=== PATIENT | male | born 1990 | race Caucasian/White ===

== ENCOUNTER 2017-12-25 18:42 | Emergency (ER) | payer SELFPAY ==
--- OUTSIDE RECORDS SUMMARY | 2017-12-25 18:44 | XMS REPORT | Clinical Summary ---
:1990 Author Organization [facility] Address [address] [place] [address] Care Team Providers Name Role Phone Asked, No Pcp Primary Care Provider Unavailable Allergies Active Allergy Reactions Severity Noted Date Comments Albuterol Hives 12/08/2017 Penicillins 12/08/2017 Tomato Rash Low 12/08/2017 Pt reports allergic to fresh tomato, tomato slices. Reports he can tolerate ketchup, or tomato sauce on pasta. Medications Medication Sig Dispensed Refills Start Date End Date Status FLUoxetine (PROzac) Take 1 capsule 30 capsule 0 12/13/2017 01/12/2018 Active 10 MG (10 mg total) by capsuleIndications: mouth every Major Depressive morning for 30 Disorder days. nicotine (NICODERM Place 1 patch on 30 patch 0 12/13/2017 01/12/2018 Active CQ) 14 mg/24 the skin daily hrIndications: for 30 days. Smoking Cessation Active Problems Problem Noted Date Major depressive disorder, recurrent severe without psychotic features 2017 Stimulant use disorder, severe 12/08/2017 Suicide attempt by adequate means 12/08/2017 Alcohol use disorder, severe 12/08/2017 Encounters Date Type Specialty Care Team Description 12/08/2017 - Hospital Encounter Psychiatry Shamika Patterson MD 12/12/2017 Sarabjit Feng MD 12/05/2017 Intake Access N/A after 12/24/2016 Social History Tobacco Use Types Packs/Day Years Used Date Never Assessed Sex Assigned at Date Recorded Not on file Job Start Date Occupation Industry Not on file Not on file Not on file Travel History Travel Start Travel End No recent travel history available. Last Filed Vital Signs Vital Sign Reading Time Taken Blood Pressure 124/58 12/12/2017 6:25 AM [employer] Pulse 63 12/12/2017 6:25 AM [employer] Temperature 36.1 C (97 F) 12/12/2017 6:25 AM [employer] Respiratory Rate 18 12/12/2017 6:25 AM [employer] Oxygen Saturation 98% 12/12/2017 6:25 AM [employer] Inhaled Oxygen Concentration - - Weight 88.6 kg (195 lb 4.8 oz) 12/12/2017 6:25 AM [employer] Height 177.8 cm (5' 10") 12/08/2017 3:29 PM CDT Body Mass Index 28.02 12/12/2017 6:25 AM [employer] Plan of Treatment Not on file Procedures Procedure Name Priority Date/Time Associated Comments Diagnosis ESTIMATED GFR Routine 12/10/2017 5:45 Results for this AM [employer] procedure are in the results section. HC COMPLETE BLD COUNT Routine 12/10/2017 5:45 Results for this W/AUTO DIFF AM [employer] procedure are in the results section. COMPREHENSIVE Routine 12/10/2017 5:45 Results for this METABOLIC PANEL AM [employer] procedure are in the results section. SYPHILIS TREPONEMAL Routine 12/10/2017 5:45 Results for this IGG AM [employer] procedure are in the results section. HIV AG/AB COMBINATION Routine 12/10/2017 5:45 Results for this AM [employer] procedure are in the results section. LIPID PANEL Routine 12/10/2017 5:45 Results for this AM [employer] procedure are in the results section. HEMOGLOBIN A1C Routine 12/10/2017 5:45 Results for this AM [employer] procedure are in the results section. after 12/24/2016 Results Syphilis treponemal IgG (12/10/2017 5:45 AM [employer]) Syphilis treponemal IgG Non-reactiveComment: Non-reactive [facility] DEPARTMENT OF Non-reactive: No PATHOLOGY AND GENOMIC serological evidence of MEDICINE Syphilis infection Specimen Serum Performing Organization Address City/State/Zipcode Phone Number [facility] DEPARTMENT OF PATHOLOGY AND [address] [place] [address] GENOMIC MEDICINE Estimated GFR (12/10/2017 5:45 AM [employer]) Estimated GFR >=90 mL/min/1.73 m2 [facility] DEPARTMENT OF Comment: PATHOLOGY AND GENOMIC CatergoryUnitsInterpretation MEDICINE G1 >=90 Normal or high G2 60-89Mildly decreased [id number] to moderately decreased [id number] to severely decreased G4 15-29Severely decreased G5 <15Kidney failure The eGFR was calculated using the Chronic Kidney Disease Epidemiology Collaboration (CKD-EPI) equation. Interpretation is based on recommendations of the National Kidney Foundation-Kidney Disease Outcomes Quality Initiative (NKF-KDOQI) published in 2014. Specimen Plasma specimen Performing Organization Address City/[facility]/Zipcode Phone Number [facility] DEPARTMENT OF PATHOLOGY AND [address] [place] [phone] [place] [address] HIV Ag/Ab combination (12/10/2017 5:45 AM [employer]) HIV Ag/Ab combination Non-reactive Non-reactive [facility] DEPARTMENT OF PATHOLOGY AND GENOMIC MEDICINE Specimen Blood Performing Organization Address City/[facility] Phone Number [facility] DEPARTMENT OF PATHOLOGY AND [address] [place] [phone] [place] [address] CBC with platelet and differential (12/10/2017 5:45 AM [employer]) WBC 7.24 4.50 - 11.00 k/uL [facility] DEPARTMENT OF PATHOLOGY AND GENOMIC MEDICINE RBC 5.35 4.40 - 6.00 m/uL [facility] DEPARTMENT OF PATHOLOGY AND GENOMIC MEDICINE HGB 15.9 14.0 - 18.0 g/dL [facility] DEPARTMENT OF PATHOLOGY AND GENOMIC MEDICINE HCT 46.7 41.0 - 51.0 % [facility] DEPARTMENT OF PATHOLOGY AND GENOMIC MEDICINE MCV 87.3 82.0 - 100.0 fL [facility] DEPARTMENT OF PATHOLOGY AND GENOMIC MEDICINE MCH 29.7 27.0 - 34.0 pg [facility] DEPARTMENT OF PATHOLOGY AND GENOMIC MEDICINE MCHC 34.0 31.0 - 37.0 g/dL [facility] DEPARTMENT OF PATHOLOGY AND GENOMIC MEDICINE RDW - SD 37.2 37.0 - 55.0 fL [facility] DEPARTMENT OF PATHOLOGY AND GENOMIC MEDICINE MPV 9.9 8.8 - 13.2 fL [facility] DEPARTMENT OF PATHOLOGY AND GENOMIC MEDICINE Platelet count 257 150 - 400 k/uL [facility] DEPARTMENT OF PATHOLOGY AND GENOMIC MEDICINE Nucleated RBC 0.00 /100 WBC [facility] DEPARTMENT OF PATHOLOGY AND GENOMIC MEDICINE Neutrophils 50.0 39.0 - 69.0 % [facility] DEPARTMENT OF PATHOLOGY AND GENOMIC MEDICINE Lymphocytes 31.1 25.0 - 45.0 % [facility] DEPARTMENT OF PATHOLOGY AND GENOMIC MEDICINE Monocytes 12.6 (H) 0.0 - 10.0 % [facility] DEPARTMENT OF PATHOLOGY AND GENOMIC MEDICINE Eosinophils 4.6 0.0 - 5.0 % [facility] DEPARTMENT OF PATHOLOGY AND GENOMIC MEDICINE Basophils 1.1 (H) 0.0 - 1.0 % [facility] DEPARTMENT OF PATHOLOGY AND GENOMIC MEDICINE Immature granulocytes 0.6Comment: 0.0 - 1.0 % [facility] DEPARTMENT OF "Immature PATHOLOGY AND GENOMIC granulocytes" MEDICINE (promyelocytes, myelocytes, metamyelocytes) Specimen Blood Performing Organization Address City/[facility] Phone Number [facility] DEPARTMENT OF PATHOLOGY AND [address] [place] [phone] [facility] Hemoglobin A1c (12/10/2017 5:45 AM [employer]) Hemoglobin A1C 5.3 4.0 - 5.6 % [facility] DEPARTMENT OF PATHOLOGY Comment: AND GENOMIC MEDICINE HbA1c cutoffs for diagnosing diabetes: 4.0% - 5.6%=normal 5.7% - 6.4%=increased risk for diabetes (prediabetes) >=6.5%=diabetes Goals for glycemic control (ADA 2016) < 7.0%Target for non adults with diabetes. More or less stringent targets may be appropriate for individual patients. <7.5% Target for Children and adolescents with type 1 diabetes. Specimen Blood Performing Organization Address City/[facility] Phone Number [facility] DEPARTMENT OF PATHOLOGY AND [address] [place] [phone] [facility] Lipid panel (12/10/2017 5:45 AM [employer]) Cholesterol 223 (H) <200 mg/dL [facility] DEPARTMENT OF PATHOLOGY AND GENOMIC MEDICINE Triglycerides 503 (H) <150 mg/dL [facility] DEPARTMENT OF PATHOLOGY AND GENOMIC MEDICINE HDL cholesterol 36 (L) >40 mg/dL [facility] DEPARTMENT OF PATHOLOGY AND GENOMIC MEDICINE LDL cholesterol 123 (H)Comment: Result <100 mg/dL [facility] DEPARTMENT OF obtained by direct LDL PATHOLOGY AND GENOMIC measurement MEDICINE Lipid panel interpretation [facility] Comment: PATHOLOGY AND GENOMIC Total Cholesterol (mg/dL) MEDICINE <200 Desirable 557-359Asjgjxyykr-mcfh >=240High Triglycerides (mg/dL) <150 Normal [id number]-fcjb 200-499High >=500Very high HDL Cholesterol (mg/dL) <40Low (male) <40Low (female) LDL Cholesterol (mg/dL) <100 Optimal 100-129Near or above optimal 011-407Vdkpalboeg-dgcf 160-189High >=190Very high Risk Catergories that modify LDL goals. Risk CatergoriesLDL goal (mg/dL) CHD and CHD risk equivalent<100 (10-year risk >20%) Multiple (2+) risk factors <130 (10-year risk=<20%) 0-1 risk factors <160 (<10-year risk) Defining levels of lipids in metabolic syndrome Triglycerides>=150 mg/dL HDL Cholesterol Men<40 mg/dL Women<40 mg/dL Non-HDL cholesterol is a second target for therapy in persons with high triglycerides (>=200 mg/dL) Specimen Plasma specimen Performing Organization Address City/State/Zipcode Phone Number [facility] DEPARTMENT OF PATHOLOGY [facility] [place] [address] [email or web address] MEDICINE Comprehensive metabolic panel (12/10/2017 5:45 AM [employer]) Sodium 138 135 - 148 mEq/L [facility] DEPARTMENT OF PATHOLOGY AND GENOMIC MEDICINE Potassium 3.9 3.5 - 5.0 mEq/L [facility] DEPARTMENT OF PATHOLOGY AND GENOMIC MEDICINE Chloride 98 98 - 112 mEq/L [facility] DEPARTMENT OF PATHOLOGY AND GENOMIC MEDICINE CO2 26 24 - 31 mEq/L [facility] DEPARTMENT OF PATHOLOGY AND GENOMIC MEDICINE Anion gap 14@ANIO 7 - 15 mEq/L [facility] DEPARTMENT OF PATHOLOGY AND GENOMIC MEDICINE BUN 15 6 - 20 mg/dL [facility] DEPARTMENT OF PATHOLOGY AND GENOMIC MEDICINE Creatinine 1.04 0.70 - 1.20 mg/dL [facility] DEPARTMENT OF PATHOLOGY AND GENOMIC MEDICINE Glucose 83 65 - 99 mg/dL [facility] DEPARTMENT OF PATHOLOGY AND GENOMIC MEDICINE Calcium 9.7 8.3 - 10.2 mg/dL [facility] DEPARTMENT OF PATHOLOGY AND GENOMIC MEDICINE Protein 7.3 6.3 - 8.3 g/dL [facility] DEPARTMENT OF Comment: PATHOLOGY AND GENOMIC [place] 4.6-7.0 g/dL MEDICINE 1 week 4.4-7.6 g/dL 7 months-1year5.1-7.3 g/dL 1-2 years5.6-7.5 g/dL >3 years6.0-8.0 g/dL 18-150 6.3-8.3 g/dL Albumin 3.8 3.5 - 5.0 g/dL [facility] DEPARTMENT OF PATHOLOGY AND GENOMIC MEDICINE A/G ratio 1.1 0.7 - 3.8 [facility] DEPARTMENT OF PATHOLOGY AND GENOMIC MEDICINE Alkaline phosphatase 70 40 - 129 U/L [facility] DEPARTMENT OF PATHOLOGY AND GENOMIC MEDICINE AST 45 10 - 50 U/L [facility] DEPARTMENT OF PATHOLOGY AND GENOMIC MEDICINE ALT 69 (H) 5 - 50 U/L [facility] DEPARTMENT OF PATHOLOGY AND GENOMIC MEDICINE Total bilirubin <0.2 0.0 - 1.2 mg/dL [facility] DEPARTMENT OF PATHOLOGY AND GENOMIC MEDICINE Specimen Plasma specimen Performing Organization Address City/State/Zipcode Phone Number [facility] DEPARTMENT OF PATHOLOGY AND [address] [place] [address] [email or web address] [facility] after 12/24/2016 Advance Directives Patient has advance care planning documents on file. For more information, please contact:Adolph Rodriguez[address] [place] [address]
[2017-12-25] MEDS ORDERED: HYDROCODONE/APAP 5/325 MG TAB ONE (19:35)
[2017-12-25] MEDS ORDERED: CLINDAMYCIN HCL 150 MG CAP ONE (19:36)
[2017-12-25] MEDS ORDERED: KETOROLAC 30 MG/ML INJ ONE (19:36)
--- NOTE | 2017-12-25 20:28 | EDPHYS ---
Physician Documentation [facility] Name: Brennen Dewey Age: 27 yrs Sex: Male : 1990 Arrival Date: 12/25/2017 Time: 18:44 Bed 6 Private MD: None, None ED Physician Gasper Carr HPI: 12/26 05:22 This 27 yrs old Male presents to ER via Ambulatory with complaints of Dog tw4 Bite. 05:22 The patient was bitten on the dorsal aspect of proximal phalanx of left middle finger tw4 and palmar aspect of proximal phalanx of left ring finger. Onset: The symptoms/episode began/occurred today. Animal information: Patient/Caregiver unable to provide information related to the animal. Secondary to the bite the patient reports a puncture wound, that is superficial. Associated signs and symptoms: Pertinent positives:. Severity of symptoms: At their worst the symptoms were moderate, in the emergency department the symptoms are unchanged. The patient has not experienced similar symptoms in the past. Historical: - Allergies: 12/25 18:55 Albuterol; jl7 18:55 PENICILLINS; jl7 - Home Meds: 18:55 Prozac Oral [Active]; jl7 - PMHx: 18:55 Depression; jl7 - PSHx: 18:55 None; jl7 - Immunization history:: Adult Immunizations up to date. - Social history:: Smoking status: Patient uses tobacco products, smokes one pack cigarettes per day. - Ebola Screening: : No symptoms or risks identified at this time. ROS: 12/26 05:22 Constitutional: Negative for fever, chills, and weight loss. tw4 Eyes: Negative for injury, pain, redness, and discharge, Cardiovascular: Negative for chest pain, palpitations, and edema, Respiratory: Negative for shortness of breath, cough, wheezing, and pleuritic chest pain, Abdomen/GI: Negative for abdominal pain, nausea, vomiting, diarrhea, and constipation, Back: Negative for injury and pain. MS/extremity: Positive for MS/extremity: Positive for pain, tenderness. Exam: 05:22 Constitutional: This is a well developed, well nourished patient who is awake, alert, tw4 and in no acute distress. Head/Face: Normocephalic, atraumatic. Chest/axilla: Normal chest wall appearance and motion. Nontender with no deformity. No lesions are appreciated. Cardiovascular: Regular rate and rhythm with a normal S1 and S2. No gallops, murmurs, or rubs. Normal PMI, no JVD. No pulse deficits. Respiratory: Lungs have equal breath sounds bilaterally, clear to auscultation and percussion. No rales, rhonchi or wheezes noted. No increased work of breathing, no retractions or nasal flaring. Abdomen/GI: Soft, non-tender, with normal bowel sounds. No distension or tympany. No guarding or rebound. No evidence of tenderness throughout. 05:22 Musculoskeletal/extremity: Extremities: noted in the dorsal aspect of proximal phalanx of left middle finger: ROM: limited active range of motion, limited passive range of motion, the dorsal aspect of proximal phalanx of left middle finger Vital Signs: 12/25 18:55 BP 111 / 79; Pulse 108; Resp 18 S; Temp 98(O); Pulse Ox 97% on R/A; Weight 88.45 kg jl7 (R); Height 5 ft. 10 in. (177.80 cm) (R); Pain 8/10; 20:40 BP 116 / 74; Pulse 99; Resp 18 S; Pulse Ox 98% on R/A; cc3 18:55 Body Mass Index 27.98 (88.45 kg, 177.80 cm) jl7 MDM: 19:05 Patient medically screened. tw4 12/26 05:22 Differential diagnosis: superficial laceration, tendon injury. Data reviewed: vital tw4 signs, nurses notes. Data interpreted: Pulse oximetry: Interpretation: normal. Counseling: I had a detailed discussion with the patient and/or guardian regarding: the historical points, exam findings, and any diagnostic results supporting the discharge/admit diagnosis. Medication response: Toradol markedly relieved the patient's pain. Special discussion: I discussed with the patient/guardian in detail that at this point there is no indication for admission to the hospital. It is understood, however, that if the symptoms persist or worsen the patient needs to return immediately for re-evaluation. Administered Medications: 12/25 19:30 Drug: Otis 5 mg-325 mg 1 tabs Route: PO; rv 20:30 Follow up: Response: No adverse reaction; Pain is decreased cc3 19:30 Drug: Cleocin 300 mg Route: PO; rv 20:30 Follow up: Response: No adverse reaction cc3 19:50 Not Given (Patient Refused): TORadol 60 mg IM once rv Disposition: 12/25/17 20:27 Discharged to Home. Impression: Bitten by dog, Puncture wound without foreign body of left hand. - Condition is Stable. - Discharge Instructions: Animal Bite. - Prescriptions for Cleocin 300 mg Oral Capsule - take 1 capsule by ORAL route every 6 hours for 10 days; 40 capsule. Ibuprofen 800 mg Oral Tablet - take 1 tablet by ORAL route every 12 hours As needed take with food; 20 tablet. Tylenol- Codeine #3 300-30 mg Oral Tablet - take 2 tablet by ORAL route every 6 hours As needed; 6 tablet. - Medication Reconciliation Form, Thank You Letter, Antibiotic Education, Prescription Opioid Use form. - Follow up: Private Physician; When: Upon discharge from the Emergency Department; Reason: Further diagnostic work-up, Recheck today's complaints, Continuance of care. - Problem is new. - Symptoms have improved. Signatures: Mariama Arce RN RN jl7 Gasper Carr MD MD tw4 Rudi Copeland RN RN rv Nahed Medrano cc3 Corrections: (The following items were deleted from the chart) 21:00 20:27 12/25/2017 20:27 Discharged to Home. Impression: Bitten by dog; Puncture wound cc3 without foreign body of left hand. Condition is Stable. Forms are Medication Reconciliation Form, Thank You Letter, Antibiotic Education, Prescription Opioid Use. Follow up: Private Physician; When: Upon discharge from the Emergency Department; Reason: Further diagnostic work-up, Recheck today's complaints, Continuance of care. Problem is new. Symptoms have improved. tw4
--- NOTE | 2017-12-25 20:28 | ER ---
Nurse's Notes [facility] Name: Brennen Dewey Age: 27 yrs Sex: Male : 1990 Arrival Date: 12/25/2017 Time: 18:44 Bed 6 Private MD: None, None Diagnosis: Bitten by dog;Puncture wound without foreign body of left hand Presentation: 12/25 18:52 Presenting complaint: Patient states: Tried to break up some stray dogs fighting and jl7 one bit me., Puncture soliz noted to left ring finger, reports unable to move index and ring fingers. Transition of care: patient was not received from another setting of care. Onset of symptoms was December 25, 2017 at 18:00. Risk Assessment: Do you want to hurt yourself or someone else? Patient reports no desire to harm self or others. Initial Sepsis Screen: Does the patient meet any 2 criteria? No. Patient's initial sepsis screen is negative. Does the patient have a suspected source of infection? No. Patient's initial sepsis screen is negative. Care prior to arrival: None. 18:52 Method Of Arrival: Ambulatory [facility] 18:52 Acuity: SELENA 3 jl7 19:07 Note [employer] dispatcher Raoul contacted to report dog bite. ak1 Triage Assessment: 18:55 Bite description: bite sustained to dorsal aspect of proximal phalanx of left ring jl7 finger is superficial, by a dog, animal information: vaccination(s) is unknown. General: Appears in no apparent distress. uncomfortable, Behavior is calm, cooperative, appropriate for age. Pain: Complains of pain in dorsal aspect of proximal phalanx of left index finger and dorsal aspect of proximal phalanx of left middle finger Pain currently is 8 out of 10 on a pain scale. Historical: - Allergies: 18:55 Albuterol; jl7 18:55 PENICILLINS; jl7 - Home Meds: 18:55 Prozac Oral [Active]; jl7 - PMHx: 18:55 Depression; jl7 - PSHx: 18:55 None; jl7 - Immunization history:: Adult Immunizations up to date. - Social history:: Smoking status: Patient uses tobacco products, smokes one pack cigarettes per day. - Ebola Screening: : No symptoms or risks identified at this time. Screenin:15 Abuse screen: Denies threats or abuse. Denies injuries from another. Nutritional cc3 screening: No deficits noted. Tuberculosis screening: No symptoms or risk factors identified. Fall Risk Ambulatory Aid- None/Bed Rest/Nurse Assist (0 pts). Gait- Normal/Bed Rest/Wheelchair (0 pts) Mental Status- Oriented to own ability (0 pts). Assessment: 19:15 Derm: Skin is intact, Skin is pink, warm \T\ dry. Wound noted dorsal aspect of proximal cc3 phalanx of left middle finger and dorsal aspect of proximal phalanx of left ring finger. 20:30 Reassessment: Patient appears in no apparent distress at this time. Patient and/or cc3 family updated on plan of care and expected duration. Pain level reassessed. Patient is alert, oriented x 3, equal unlabored respirations, skin warm/dry/pink. Wound cleaning done. 21:00 Reassessment: Patient appears in no apparent distress at this time. Patient and/or cc3 family updated on plan of care and expected duration. Pain level reassessed. Patient is alert, oriented x 3, equal unlabored respirations, skin warm/dry/pink. Dr. Carr discharged the patient home with prescription given. No IV cannula in situ. Patient left ER vitally stable and ambulatory with his mother. Vital Signs: 18:55 BP 111 / 79; Pulse 108; Resp 18 S; Temp 98(O); Pulse Ox 97% on R/A; Weight 88.45 kg jl7 (R); Height 5 ft. 10 in. (177.80 cm) (R); Pain 8/10; 20:40 BP 116 / 74; Pulse 99; Resp 18 S; Pulse Ox 98% on R/A; cc3 18:55 Body Mass Index 27.98 (88.45 kg, 177.80 cm) jl7 ED Course: 18:44 Patient arrived in ED. sb2 18:44 None, None is Private Physician. sb2 18:54 Triage completed. jl7 18:55 Arm band placed on right wrist. jl7 19:05 Gasper Carr MD is Attending Physician. tw4 19:09 Nahed Medrano is Primary Nurse. cc3 19:15 Patient has correct armband on for positive identification. Bed in low position. Call cc3 light in reach. Pulse ox on. NIBP on. 21:00 No provider procedures requiring assistance completed. Patient did not have IV access cc3 during this emergency room visit. Administered Medications: 19:30 Drug: Marquand 5 mg-325 mg 1 tabs Route: PO; rv 20:30 Follow up: Response: No adverse reaction; Pain is decreased cc3 19:30 Drug: Cleocin 300 mg Route: PO; rv 20:30 Follow up: Response: No adverse reaction cc3 19:50 Not Given (Patient Refused): TORadol 60 mg IM once rv Outcome: 20:27 Discharge ordered by . gabriella 21:00 Patient left the ED. cc3 21:00 Discharged to home ambulatory, with family. cc3 21:00 Condition: stable 21:00 Discharge instructions given to patient, family, Instructed on discharge instructions, follow up and referral plans. medication usage, Demonstrated understanding of instructions, follow-up care, medications, wound care, Prescriptions given X 3. Signatures: Heather Butler, RN RN ak1 Mariama Arce RN RN jl7 Gasper Carr MD MD 4 Mandie Thompson 2 Rudi Copeland, RN RN rv Nahed Medrano cc3
[2017-12-25 22:28] VITALS: BP 111/79; TEMP 98; O2SAT 97
== END 2017-12-25 21:00 | disposition home or self-care (01) ==
LOC: ER 18:42
DX: S61.432A Puncture wound without foreign body of left hand, initial encounter (principal); W54.0XXA Bitten by dog, initial encounter; Y93.9 Activity, unspecified; Y92.9 Unspecified place or not applicable; Z88.0 Allergy status to penicillin; Z88.8 Allergy status to other drugs, medicaments and biological substances; F32.9 Major depressive disorder, single episode, unspecified; F17.210 Nicotine dependence, cigarettes, uncomplicated
CPT/HCPCS: 99283

== ENCOUNTER 2018-01-22 21:32 | Emergency (ER) | payer SELFPAY ==
--- OUTSIDE RECORDS SUMMARY | 2018-01-22 21:34 | XMS REPORT | Clinical Summary ---
:1990 Author Organization [facility] Address [address] [place] [address] Care Team Providers Name Role Phone Asked, [...] 1 capsule 30 capsule 0 12/13/2017 01/12/2018 10 MG (10 mg total) by capsuleIndications: mouth every Major Depressive morning for 30 Disorder days. nicotine (NICODERM Place 1 patch on 30 patch 0 12/13/2017 01/12/2018 CQ) 14 mg/24 the skin daily hrIndications: [...] Feng MD 12/05/2017 Intake Access N/A after 01/21/2017 Social History Tobacco Use Types Packs/Day Years Used Date Never Assessed Sex Assigned at Date Recorded Not on file Job Start Date Occupation Industry Not on file Not on file Not on file Travel History Travel Start Travel End No recent travel history available. Last Filed Vital Signs Vital Sign Reading Time Taken Blood Pressure 124/58 12/12/2017 6:25 AM [facility] Pulse 63 12/12/2017 6:25 AM [facility] Temperature 36.1 C (97 F) 12/12/2017 6:25 AM [facility] Respiratory Rate 18 12/12/2017 6:25 AM [facility] Oxygen Saturation 98% 12/12/2017 6:25 AM [facility] Inhaled Oxygen Concentration - - Weight 88.6 kg (195 lb 4.8 oz) 12/12/2017 6:25 AM [facility] Height 177.8 cm (5' 10") 12/08/2017 3:29 PM CDT Body Mass Index 28.02 12/12/2017 6:25 AM [facility] Plan of Treatment Not on file Procedures Procedure Name Priority Date/Time Associated Comments Diagnosis ESTIMATED GFR Routine 12/10/2017 5:45 Results for this AM [facility] procedure are in the results section. HC COMPLETE BLD COUNT Routine 12/10/2017 5:45 Results for this W/AUTO DIFF [facility] procedure are in the results section. COMPREHENSIVE Routine 12/10/2017 5:45 Results for this METABOLIC PANEL [facility] procedure are in the results section. SYPHILIS TREPONEMAL Routine 12/10/2017 5:45 Results for this IGG [facility] procedure are in the results section. HIV AG/AB COMBINATION Routine 12/10/2017 5:45 Results for this AM [facility] procedure are in the results section. LIPID PANEL Routine 12/10/2017 5:45 Results for this AM [facility] procedure are in the results section. HEMOGLOBIN A1C Routine 12/10/2017 5:45 Results for this AM [facility] procedure are in the results section. after 01/21/2017 Results Syphilis treponemal IgG (12/10/2017 5:45 AM [facility]) Syphilis treponemal IgG Non-reactiveComment: Non-reactive [facility] DEPARTMENT OF Non-reactive: No PATHOLOGY AND GENOMIC serological evidence of MEDICINE Syphilis infection Specimen Serum Performing Organization Address City/State/Zipcode Phone Number [facility] DEPARTMENT OF PATHOLOGY AND [address] [place] [address] GENOMIC MEDICINE Estimated GFR (12/10/2017 5:45 AM [facility]) Estimated GFR >=90 mL/min/1.73 m2 [facility] DEPARTMENT OF Comment: PATHOLOGY AND GENOMIC CatergoryUnitsInterpretation MEDICINE G1 >=90 Normal or high G2 60-89Mildly decreased [id number] to moderately decreased L8f51-89Zbcxyuqvqh to severely decreased G4 15-29Severely decreased G5 <15Kidney failure The eGFR was calculated using the Chronic Kidney Disease Epidemiology Collaboration (CKD-EPI) equation. Interpretation is based on recommendations of the National Kidney Foundation-Kidney Disease Outcomes Quality Initiative (NKF-KDOQI) published in 2014. Specimen Plasma specimen Performing Organization Address City/[facility]/Zipcode Phone Number [facility] DEPARTMENT OF PATHOLOGY AND [address] [place] [phone] [place] [address] HIV Ag/Ab combination (12/10/2017 5:45 AM [facility]) HIV Ag/Ab combination Non-reactive Non-reactive [facility] DEPARTMENT OF PATHOLOGY AND GENOMIC MEDICINE Specimen Blood Performing Organization Address City/[facility] [email or web address] Phone Number [facility] DEPARTMENT OF PATHOLOGY AND [address] [place] [phone] [place] [address] CBC with platelet and differential (12/10/2017 5:45 AM [facility]) WBC 7.24 4.50 - 11.00 k/uL [facility] DEPARTMENT OF PATHOLOGY AND GENOMIC MEDICINE RBC 5.35 4.40 - 6.00 m/uL [facility] DEPARTMENT OF PATHOLOGY AND GENOMIC MEDICINE HGB 15.9 14.0 - 18.0 g/dL [facility] DEPARTMENT OF PATHOLOGY AND GENOMIC MEDICINE HCT 46.7 41.0 - 51.0 % [facility] DEPARTMENT OF PATHOLOGY AND GENOMIC MEDICINE MCV 87.3 82.0 - 100.0 fL [facility] DEPARTMENT OF PATHOLOGY AND GENOMIC MEDICINE MCH 29.7 27.0 - 34.0 pg [facility] DEPARTMENT OF PATHOLOGY AND GENOMIC MEDICINE MCHC 34.0 31.0 - 37.0 g/dL [facility] DEPARTMENT OF PATHOLOGY AND GENOMIC MEDICINE RDW - SD 37.2 37.0 - 55.0 fL [facility] DEPARTMENT OF PATHOLOGY AND GENOMIC MEDICINE MPV 9.9 8.8 - 13.2 fL [facility] DEPARTMENT OF PATHOLOGY AND GENOMIC MEDICINE Platelet count 257 150 - 400 k/uL [facility] DEPARTMENT OF PATHOLOGY AND GENOMIC MEDICINE Nucleated RBC 0.00 /100 WBC [facility] DEPARTMENT OF PATHOLOGY AND GENOMIC MEDICINE Neutrophils 50.0 39.0 - 69.0 % [facility] DEPARTMENT OF PATHOLOGY AND GENOMIC MEDICINE Lymphocytes 31.1 25.0 - 45.0 % [facility] DEPARTMENT OF PATHOLOGY AND GENOMIC MEDICINE Monocytes 12.6 (H) 0.0 - 10.0 % [facility] DEPARTMENT OF PATHOLOGY AND GENOMIC MEDICINE Eosinophils 4.6 0.0 - 5.0 % [facility] DEPARTMENT OF PATHOLOGY AND GENOMIC MEDICINE Basophils 1.1 (H) 0.0 - 1.0 % [facility] DEPARTMENT OF PATHOLOGY AND GENOMIC MEDICINE Immature granulocytes 0.6Comment: 0.0 - 1.0 % [facility] DEPARTMENT OF "Immature PATHOLOGY AND GENOMIC granulocytes" MEDICINE (promyelocytes, myelocytes, metamyelocytes) Specimen Blood Performing Organization Address City/[facility] [email or web address] Phone Number [facility] DEPARTMENT OF PATHOLOGY AND [address] [place] [phone] [place] [address] Hemoglobin A1c (12/10/2017 5:45 AM [facility]) Hemoglobin A1C 5.3 4.0 - 5.6 % [facility] DEPARTMENT OF PATHOLOGY Comment: AND GENOMIC MEDICINE HbA1c cutoffs for diagnosing diabetes: 4.0% - 5.6%=normal 5.7% - 6.4%=increased risk for diabetes (prediabetes) >=6.5%=diabetes Goals for glycemic control (ADA 2016) < 7.0%Target for non adults with diabetes. More or less stringent targets may be appropriate for individual patients. <7.5% Target for Children and adolescents with type 1 diabetes. Specimen Blood Performing Organization Address City/[facility] [email or web address] Phone Number [facility] DEPARTMENT OF PATHOLOGY AND [address] [place] [phone] [facility] Lipid panel (12/10/2017 5:45 AM [facility]) Cholesterol 223 (H) <200 mg/dL [facility] DEPARTMENT OF PATHOLOGY AND GENOMIC MEDICINE Triglycerides 503 (H) <150 mg/dL [facility] DEPARTMENT OF PATHOLOGY AND GENOMIC MEDICINE HDL cholesterol 36 (L) >40 mg/dL [facility] DEPARTMENT OF PATHOLOGY AND GENOMIC MEDICINE LDL cholesterol 123 (H)Comment: Result <100 mg/dL [facility] DEPARTMENT OF obtained by direct LDL PATHOLOGY AND GENOMIC measurement MEDICINE Lipid panel [facility] Comment: PATHOLOGY AND GENOMIC Total Cholesterol (mg/dL) MEDICINE <200 Desirable 298-637Gkwzyhzkvi-fszw >=240High Triglycerides (mg/dL) <150 Normal 141-303Fxqxvrgtzs-rnhq 200-499High >=500Very high HDL Cholesterol (mg/dL) <40Low (male) <40Low (female) LDL Cholesterol (mg/dL) <100 Optimal 100-129Near or above optimal 192-168Dwjywfompi-ivjf 160-189High >=190Very high Risk Catergories that modify [...] specimen Performing Organization Address City/State/Zipcode Phone Number [facility] DEPARTMENT OF PATHOLOGY [facility] [place] [address] [employer] MEDICINE Comprehensive metabolic panel (12/10/2017 5:45 AM [facility]) Sodium 138 135 - 148 mEq/L [facility] DEPARTMENT OF PATHOLOGY AND GENOMIC MEDICINE Potassium 3.9 3.5 - 5.0 mEq/L [facility] DEPARTMENT OF PATHOLOGY AND GENOMIC MEDICINE Chloride 98 98 - 112 mEq/L [facility] DEPARTMENT OF PATHOLOGY AND GENOMIC MEDICINE CO2 26 24 - 31 mEq/L [facility] DEPARTMENT OF PATHOLOGY AND GENOMIC MEDICINE Anion gap 14@ANIO 7 - 15 mEq/L [facility] DEPARTMENT OF PATHOLOGY AND GENOMIC MEDICINE BUN 15 6 - 20 mg/dL [facility] DEPARTMENT OF PATHOLOGY AND GENOMIC MEDICINE Creatinine 1.04 0.70 - 1.20 mg/dL [facility] DEPARTMENT OF PATHOLOGY AND GENOMIC MEDICINE Glucose 83 65 - 99 mg/dL [facility] DEPARTMENT OF PATHOLOGY AND GENOMIC MEDICINE Calcium 9.7 8.3 - 10.2 mg/dL [facility] DEPARTMENT OF PATHOLOGY AND GENOMIC MEDICINE Protein 7.3 6.3 - 8.3 g/dL [facility] DEPARTMENT OF Comment: PATHOLOGY AND GENOMIC [place] 4.6-7.0 g/dL MEDICINE 1 week 4.4-7.6 g/dL 7 months-1year5.1-7.3 g/dL 1-2 years5.6-7.5 g/dL >3 years6.0-8.0 g/dL 18-150 6.3-8.3 g/dL Albumin 3.8 3.5 - 5.0 g/dL [facility] DEPARTMENT OF PATHOLOGY AND GENOMIC MEDICINE A/G ratio 1.1 0.7 - 3.8 [facility] DEPARTMENT OF PATHOLOGY AND GENOMIC MEDICINE Alkaline phosphatase 70 40 - 129 U/L [facility] DEPARTMENT OF PATHOLOGY AND GENOMIC MEDICINE AST 45 10 - 50 U/L [facility] DEPARTMENT OF PATHOLOGY AND GENOMIC MEDICINE ALT 69 (H) 5 - 50 U/L [facility] DEPARTMENT OF PATHOLOGY AND GENOMIC MEDICINE Total bilirubin <0.2 0.0 - 1.2 mg/dL [facility] DEPARTMENT OF PATHOLOGY AND GENOMIC MEDICINE Specimen Plasma specimen Performing Organization Address City/State/Zipcode Phone Number [facility] DEPARTMENT OF PATHOLOGY AND [address] [place] [address] [employer] [facility] after 01/21/2017 Advance Directives Patient has advance care planning documents on file. For more information, please contact:Adolph Rodriguez[address] [place] [address]
[2018-01-22 22:16] LABS: Absolute Monocytes 0.8 K/uL (0.1-1.3); Absolute Neutrophil 4.2 K/uL (1.8-8.0); Basophils % 1.2 % (0-1.3); Eosinophils % 3.7 % (0-4.4); Hematocrit 46.7 % (39.6-49.0); Lymphocytes % 27.6 % (15.3-44.8); MPV 7.8 fL (7.6-11.3); Monocytes % 11.4 % (3.3-12.3); RBC Red Blood Cell Count 5.37 M/uL (4.33-5.43)
[2018-01-22 22:20] LABS: Protime INR 1.01
[2018-01-22 22:50] LABS: ALT/SGPT 45 U/L (12-78); AST/SGOT 26 U/L (15-37); Albumin 4.3 g/dL (3.4-5.0); Alkaline Phosphatase 84 U/L (45-117); BUN Blood Urea Nitrogen 13 mg/dL (7-18); Bicarbonate 28 mmol/L (21-32); Bilirubin Direct 0.1 mg/dL (0-0.2); Bilirubin Total 0.4 mg/dL (0.2-1.0); Glucose Level 101 mg/dL (74-106); Potassium 3.5 mmol/L (3.5-5.1); Protein, Total 8.1 g/dL (6.4-8.2); Sodium Level 138 mmol/L (136-145)
[2018-01-23 00:56] LABS: Barbiturates NEGATIVE (NEGATIVE); Benzodiazepines NEGATIVE (NEGATIVE); Cocaine NEGATIVE (NEGATIVE); METHAMPHETAM NEGATIVE (NEGATIVE); Methadone NEGATIVE (NEGATIVE); Opiates NEGATIVE (NEGATIVE); Phencyclidine NEGATIVE (NEGATIVE); THC Cannibis POSITIVE (NEGATIVE)
[2018-01-23 01:20] LABS: Urine Blood TRACE (NEG); Urine Glucose NEGATIVE (NEG); Urine Protein NEGATIVE (NEG); Urine Specific Gravity 1.015 (1.005-1.030)
[2018-01-23] MEDS ORDERED: NICOTINE 21 MG/PAT TD ONE (01:50)
--- NOTE | 2018-01-23 03:12 | ER ---
Nurse's Notes [facility] Name: Brennen Dewey Age: 27 yrs Sex: Male : 1990 Arrival Date: 01/22/2018 Time: 21:33 Bed 18 Private MD: Diagnosis: Suicide attempt;Suicidal ideations Presentation: 01/22 21:56 Presenting complaint: [place] [employer] brought pt for SI and attempted suicide by hanging, pt bb uncooperative does not want to answer questions and is refusing to undress, refuses cat scan. Transition of care: patient was not received from another setting of care. Onset of symptoms was January 22, 2018. Risk Assessment: Do you want to hurt yourself or someone else? Patient reports desire/thoughts of hurting themselves or someone else. Provider notified. Initial Sepsis Screen: Does the patient meet any 2 criteria? No. Patient's initial sepsis screen is negative. Does the patient have a suspected source of infection? No. Patient's initial sepsis screen is negative. Care prior to arrival: None. 21:56 Method Of Arrival: Law Enforcement: Timoteo Brown bb 21:56 Acuity: SELENA 2 bb Historical: - Allergies: 21:58 Albuterol; bb 21:58 PENICILLINS; bb - Home Meds: 21:58 Prozac Oral [Active]; bb - PMHx: 21:58 Depression; bb - PSHx: 21:58 None; bb - Immunization history:: Adult Immunizations up to date. - Social history:: Smoking status: unknown. - Ebola Screening: : No symptoms or risks identified at this time. - Family history:: not pertinent. - Hospitalizations: : No recent hospitalization is reported. Screenin:44 Abuse screen: Denies threats or abuse. Denies injuries from another. Nutritional mg2 screening: No deficits noted. Tuberculosis screening: No symptoms or risk factors identified. Fall Risk IV access (20 points). Assessment: 22:42 General: Appears in no apparent distress. comfortable, Behavior is calm, uncooperative. mg2 Pain: Denies pain. Neuro: Level of Consciousness is awake, alert, obeys commands, Oriented to person, place, time, situation. Cardiovascular: Capillary refill < 3 seconds Patient's skin is warm and dry. Respiratory: Airway is patent Respiratory effort is even, unlabored, Respiratory pattern is regular, symmetrical. GI: No signs and/or symptoms were reported involving the gastrointestinal system. : No signs and/or symptoms were reported regarding the genitourinary system. EENT: No signs and/or symptoms were reported regarding the EENT system. Derm: Skin is intact, is healthy with good turgor, Skin is pink, warm \\T\\ dry. normal, no signs of neck strangulation. Musculoskeletal: Circulation, motion, and sensation intact. Capillary refill < 3 seconds. 23:50 Reassessment: Patient appears in no apparent distress at this time. Patient and/or mg2 family updated on plan of care and expected duration. Pain level reassessed. Patient is alert, oriented x 3, equal unlabored respirations, skin warm/dry/pink. 01/23 01:50 Reassessment: Reassessment: Patient appears in no apparent distress at this time. mg2 Patient and/or family updated on plan of care and expected duration. Pain level reassessed. Patient is alert, oriented x 3, equal unlabored respirations, skin warm/dry/pink. patient sleeping on bed. 03:00 Reassessment: Patient appears in no apparent distress at this time. Patient and/or jb4 family updated on plan of care and expected duration. Pain level reassessed. General: Pt is resting with eyes closed.. Respiratory: Airway is patent Respiratory effort is even, unlabored, Respiratory pattern is regular, symmetrical. 04:00 Reassessment: Patient appears in no apparent distress at this time. No changes from jb4 previously documented assessment. Patient and/or family updated on plan of care and expected duration. Pain level reassessed. 05:00 Reassessment: Patient appears in no apparent distress at this time. No changes from jb4 previously documented assessment. 06:00 Reassessment: Patient appears in no apparent distress at this time. No changes from jb4 previously documented assessment. 07:00 Reassessment: Patient appears in no apparent distress at this time. Patient and/or ph family updated on plan of care and expected duration. Pain level reassessed. Pt asleep w/ even and unlabored respirations. 08:00 Reassessment: Patient appears in no apparent distress at this time. No changes from ph previously documented assessment. Patient and/or family updated on plan of care and expected duration. Pain level reassessed. 09:00 Reassessment: Patient appears in no apparent distress at this time. Patient and/or em family updated on plan of care and expected duration. Pain level reassessed. Patient is alert, oriented x 3, equal unlabored respirations, skin warm/dry/pink. 10:00 Reassessment: Patient appears in no apparent distress at this time. Patient and/or em family updated on plan of care and expected duration. Pain level reassessed. Patient is alert, oriented x 3, equal unlabored respirations, skin warm/dry/pink. 11:53 Reassessment: Patient appears in no apparent distress at this time. Patient and/or em family updated on plan of care and expected duration. Pain level reassessed. Patient is alert, oriented x 3, equal unlabored respirations, skin warm/dry/pink. 13:23 Reassessment: pt eloped, stated he wanted to go home, left through the front door of em ER, provider notified, [place] notified. 13:48 Reassessment: pt in PD custody, pt will be transferred to [facility]. em Psych: 01/22 22:00 Subjective: Patient's mood is angry, Having thoughts of suicide. Plan for suicide is bb hanging. Objective: Patient is uncooperative, hostile, using poor eye contact, Affect is flat. Interventions: pt refusing to undress. Suicide Risk Assessment: Sad Person Scale: Sex of patient: Male: Score 1 point. Age of patient: Score 1 point if patient 15-34. Depression: Score 1 point if signs of depression are present. Previous Attempt: Score 1 point if patient has previously attempted suicide. Rational Thinking: Score 1 point if patient is lacking rational thinking. Social Support: Score 0 if social support is present/available. Organized Plan: Score 1 point if patient had a plan in place. TOTAL POINTS: If total points are 3-4, proposed clinical action is close follow-up/consider hospitalization. 22:45 Safety Checks: Personal items have been removed. Door is open. No visitors are present mg2 at this time. police [employer] is at bedside. Pt denies substance abuse. Commitment: Patient will be an involuntary commitment. Vital Signs: 21:58 BP 140 / 80; Pulse 73; Resp 16 S; Pulse Ox 97% on R/A; Weight 90.72 kg (R); Height 5 bb ft. 10 in. (177.80 cm) (R); 01/23 02:03 BP 126 / 75; Pulse 69; Resp 18; Temp 97.5; Pulse Ox 100% on R/A; Pain 0/10; ar5 05:58 BP 122 / 68; Pulse 69; Resp 18; Temp 97.9; Pulse Ox 100% on R/A; Pain 0/10; ar5 10:03 BP 138 / 74; Pulse 88; Resp 16; Pulse Ox 99% ; Pain 0/10; ms 01/22 21:58 Body Mass Index 28.70 (90.72 kg, 177.80 cm) bb ED Course: 01/22 21:33 Patient arrived in ED. ds1 21:44 Bay Amanda MD is Attending Physician. rn 21:51 Chase Bravo, TOMÁS is Primary Nurse. mg2 21:58 Triage completed. bb 21:58 [facility] notified at 2155. . mt 21:58 Arm band placed on Patient placed in an exam room, on a stretcher. bb 22:15 Safety Checks: Items have not been removed patient refused to give his personal mg2 belongings Sitter present at this time. 22:26 EKG done, by ED staff, reviewed by Bay Amanda MD. ds4 22:30 Safety Checks: Sitter present at this time. Other: patient refused for his personal mg2 belonging to be taken to security. 22:44 No provider procedures requiring assistance completed. Inserted saline lock: 22 gauge mg2 in left antecubital area, using aseptic technique. Blood collected. 22:46 Patient has correct armband on for positive identification. Bed in low position. police mg2 officer at bedside. 23:27 Safety Checks: Sitter present at this time. mg2 23:45 Safety Checks: There are no family/friend visitors at this time Sitter present at this mg2 time. 01/23 00:29 Safety checks: Door open/sign placed on door: yes. Family/friend present: no. Sitter mb4 present: Yes. Safety checks: Items removed: yes. Placed in gown. 00:38 Safety checks: Family/friend present: Other: Sandhya a "close family friend" is in the 4 room. Door is open. Curtain is pulled to provide visualization of the room. Warm blanket given. 01:10 Safety checks: Door open/sign placed on door: yes. Family/friend present: yes. Other: mb4 Mother and father joined the room. Sitter present:. Diet: offered but denied by patient. 01:25 Safety Checks: A family member and/or friend is present and encouraged to stay. The mg2 door is not opened, nor is patient placed in a hallway bed/chair. Sitter present at this time. 01:30 Safety checks: Items removed: yes. Door open/sign placed on door: yes. Family/friend ds4 present: no. Sitter present: Yes. 01:45 Safety checks: Items removed: yes. Door open/sign placed on door: yes. Family/friend ds4 present: no. Sitter present: Yes. 01:51 Safety Checks: Sitter present at this time. mg2 02:00 Safety checks: Items removed: yes. Door open/sign placed on door: yes. Family/friend ar5 present: no. Sitter present: Yes. 02:15 Safety checks: Items removed: yes. Door open/sign placed on door: yes. Family/friend ar5 present: no. Sitter present: Yes. 02:30 Safety checks: Items removed: yes. Door open/sign placed on door: yes. Family/friend ar5 present: no. Sitter present: Yes. 02:33 IV discontinued, intact, bleeding controlled, No redness/swelling at site. Pressure mg2 dressing applied. 02:45 Safety checks: Items removed: yes. Door open/sign placed on door: yes. Family/friend ar5 present: no. Sitter present: Yes. 03:00 Safety checks: Items removed: yes. Door open/sign placed on door: yes. Family/friend ar5 present: no. Sitter present: Yes. 03:15 Safety checks: Items removed: yes. Door open/sign placed on door: yes. Family/friend ar5 present: no. Sitter present: Yes. 03:30 Safety checks: Items removed: yes. Door open/sign placed on door: yes. Family/friend ar5 present: no. Sitter present: Yes. 03:45 Safety checks: Items removed: yes. Door open/sign placed on door: yes. Family/friend ar5 present: no. Sitter present: Yes. 04:00 Safety checks: Items removed: yes. Door open/sign placed on door: yes. Family/friend ar5 present: no. Sitter present: Yes. 04:15 Safety checks: Items removed: yes. Door open/sign placed on door: yes. Family/friend ar5 present: no. Sitter present: Yes. 04:30 Safety checks: Items removed: yes. Door open/sign placed on door: yes. Family/friend ar5 present: no. Sitter present: Yes. 04:45 Safety checks: Items removed: yes. Door open/sign placed on door: yes. Family/friend ar5 present: no. Sitter present: Yes. 05:00 Safety checks: Items removed: yes. Door open/sign placed on door: yes. Family/friend ar5 present: no. Sitter present: Yes. 05:15 Safety checks: Items removed: yes. Door open/sign placed on door: yes. Family/friend ar5 present: no. Sitter present: Yes. 05:30 Safety checks: Items removed: yes. Door open/sign placed on door: yes. Family/friend ar5 present: no. Sitter present: Yes. 05:45 Safety checks: Items removed: yes. Door open/sign placed on door: yes. Family/friend ar5 present: no. Sitter present: Yes. 06:00 Safety checks: Items removed: yes. Door open/sign placed on door: yes. Family/friend ar5 present: no. Sitter present: Yes. 06:15 Safety checks: Items removed: yes. Door open/sign placed on door: yes. Family/friend ar5 present: no. Sitter present: Yes. 06:30 Safety checks: Items removed: yes. Door open/sign placed on door: yes. Family/friend ar5 present: no. Sitter present: Yes. 06:45 Safety checks: Items removed: yes. Door open/sign placed on door: yes. Family/friend ar5 present: no. Sitter present: Yes. 07:00 Safety checks: Items removed: yes. Door open/sign placed on door: yes. Family/friend dh3 present: no. Sitter present: Yes. 07:04 Michell Brown FNP-C is PHCP. kb 07:15 Safety checks: Items removed: yes. Door open/sign placed on door: yes. Family/friend dh3 present: no. Sitter present: Yes. 07:30 Safety checks: Items removed: yes. Door open/sign placed on door: yes. Family/friend dh3 present: no. Sitter present: Yes. 07:45 Safety checks: Items removed: yes. Door open/sign placed on door: yes. Family/friend dh3 present: no. Sitter present: Yes. 08:00 Safety checks: Items removed: yes. Door open/sign placed on door: yes. Family/friend ms present: no. Sitter present: Yes. 08:15 Safety checks: Items removed: yes. Door open/sign placed on door: yes. Family/friend ms present: no. Sitter present: Yes. 08:30 Safety checks: Items removed: yes. Door open/sign placed on door: yes. Family/friend ms present: no. Sitter present: Yes. 08:45 Safety checks: Items removed: yes. Door open/sign placed on door: yes. Family/friend ms present: no. Sitter present: Yes. 09:00 Safety checks: Items removed: yes. Door open/sign placed on door: yes. Family/friend ms present: no. Sitter present: Yes. 09:15 Safety checks: Items removed: yes. Door open/sign placed on door: yes. Family/friend ms present: no. Sitter present: Yes. 09:30 Safety checks: Items removed: yes. Door open/sign placed on door: yes. Family/friend ms present: no. Sitter present: Yes. 09:45 Safety checks: Items removed: yes. Door open/sign placed on door: yes. Family/friend ms present: no. Sitter present: Yes. 10:00 Safety checks: Items removed: yes. Door open/sign placed on door: yes. Family/friend ms present: no. Sitter present: Yes. 10:15 Safety checks: Items removed: yes. Door open/sign placed on door: yes. Family/friend ms present: no. Sitter present: Yes. 10:30 Safety checks: Items removed: yes. Door open/sign placed on door: yes. Family/friend ms present: no. Sitter present: Yes. 10:45 Safety checks: Items removed: yes. Door open/sign placed on door: yes. Family/friend ms present: no. Sitter present: Yes. 11:00 Safety checks: Items removed: yes. Door open/sign placed on door: yes. Family/friend ms present: no. Sitter present: Yes. 11:15 Safety checks: Items removed: yes. Door open/sign placed on door: yes. Family/friend dh3 present: no. Sitter present: Yes. 11:30 Safety checks: Items removed: yes. Door open/sign placed on door: yes. Family/friend dh3 present: no. Sitter present: Yes. 11:45 Safety checks: Items removed: yes. Door open/sign placed on door: yes. Family/friend ms present: no. Sitter present:. 12:00 Safety checks: Items removed: yes. Door open/sign placed on door: yes. Family/friend ms present: no. Sitter present: Yes. 12:15 Safety checks: Items removed: yes. Door open/sign placed on door: yes. Family/friend dh3 present: no. Sitter present: Yes. 12:30 Safety checks: Items removed: yes. Door open/sign placed on door: yes. Family/friend dh3 present: no. Sitter present: Yes. 12:45 Safety checks: Items removed: yes. Door open/sign placed on door: yes. Family/friend ms present: no. Sitter present: Yes. Administered Medications: 01:47 Drug: Nicotine 21 mg/24 hr 1 patches {Note: applied to the left arm.} Route: mg2 Transdermal; Site: affected area; 03:00 Follow up: Response: No adverse reaction jb4 Outcome: 03:12 ER care complete, transfer ordered by . rn 13:23 Eloped from patient exam room, after seeing physician Time discovered patient gone: em January 23, 2018 at 13:23 13:53 Patient left the ED. em Signatures: Michell Brown, DIVISION COMMANDER-C DIVISION COMMANDER-Ckb Jeff Simpson, BEAM HOUSE INSPECTOR BEAM HOUSE INSPECTOR em Sera Arce ds1 July Fernandez RN RN bb Solis, Maria ms Nieto, Roman, MD MD rn Swanson, Donovan ds4 Sarita Banks RN RN ph Bryson, James, RN RN jb4 Selma Donis mt, Deanna 3 Chase Bravo RN [place] [facility] [place]u Crow mb4 Kindra Guerra ar5 Corrections: (The following items were deleted from the chart) 12/18 23:23 23:21 Safety Checks: Personal items have been removed. The door is open or patient has mg2 been placed in a hallway bed/chair. Sitter present at this time. [facility] [place] 23:27 22:15 Safety Checks: The door is open or patient has been placed in a hallway mg2 bed/chair. Items have not been removed patient refused to give his personal belongings Sitter present at this time. [facility] [place] 01/23 11:14 10:30 Safety checks: ms ms 13:53 13:23 Reassessment: MARIELLE burns notified em em
--- NOTE | 2018-01-23 03:12 | EDPHYS ---
Physician Documentation [facility] Name: Brennen Dewey Age: 27 yrs Sex: Male : 1990 Arrival Date: 01/22/2018 Time: 21:33 Bed 18 Private MD: ED Physician Bay Amanda HPI: 01/22 22:04 This 27 yrs old Male presents to ER via Law Enforcement with complaints of rn Suicidal Ideation. 22:04 The patient presents to the emergency department with a history of a suicide gesture, rn suicide ideation. Onset: The symptoms/episode began/occurred at an unknown time. Severity of symptoms: At their worst the symptoms were moderate in the emergency department the symptoms are unchanged. The patient has experienced a previous episode. The patient has not recently seen a physician. Per parents and EMS, found sitting in chair, with something wrapped around his neck, thought was that he was going to hang himself, was not hanging, no current complaints of neck pain/ trouble breathing/trouble swallowing. No overdose. . Historical: - Allergies: 21:58 Albuterol; bb 21:58 PENICILLINS; bb - Home Meds: 21:58 Prozac Oral [Active]; bb - PMHx: 21:58 Depression; bb - PSHx: 21:58 None; bb - Immunization history:: Adult Immunizations up to date. - Social history:: Smoking status: unknown. - Ebola Screening: : No symptoms or risks identified at this time. - Family history:: not pertinent. - Hospitalizations: : No recent hospitalization is reported. ROS: 22:04 Constitutional: Negative for fever, chills, and weight loss, Eyes: Negative for injury, rn pain, redness, and discharge, Neck: Negative for injury, pain, and swelling, Cardiovascular: Negative for chest pain, palpitations, and edema, Respiratory: Negative for shortness of breath, cough, wheezing, and pleuritic chest pain, Abdomen/GI: Negative for abdominal pain, nausea, vomiting, diarrhea, and constipation, MS/Extremity: Negative for injury and deformity, Skin: Negative for injury, rash, and discoloration, Neuro: Negative for headache, weakness, numbness, tingling, and seizure, Psych: + SI and gesture Exam: 22:04 Constitutional: This is a well developed, well nourished patient who is awake, alert, rn and in no acute distress. Head/Face: Normocephalic, atraumatic. Eyes: Pupils equal round and reactive to light, extra-ocular motions intact. Lids and lashes normal. Conjunctiva and sclera are non-icteric and not injected. Cornea within normal limits. Periorbital areas with no swelling, redness, or edema. ENT: Nares patent. No nasal discharge, no septal abnormalities noted. Oropharynx with no redness, swelling, or masses, exudates, or evidence of obstruction, uvula midline. Mucous membranes moist. Neck: Trachea midline, no thyromegaly or masses palpated, and no cervical lymphadenopathy. Supple, full range of motion without nuchal rigidity, or vertebral point tenderness. No Meningismus. No bruising, no ligature soliz, no hematoma, no masses Respiratory: Lungs have equal breath sounds bilaterally, clear to auscultation . No increased work of breathing, no retractions or nasal flaring. Skin: Warm, dry with normal turgor. Normal color with no rashes, no lesions, and no evidence of cellulitis. MS/ Extremity: Pulses equal, no cyanosis. Neurovascular intact. Full, normal range of motion. Equal circumference. Neuro: Awake and alert, GCS 15, oriented to person, place, time, and situation. Cranial nerves II-XII grossly intact. Motor strength 5/5 in all extremities. Sensory grossly intact. Cerebellar exam normal. Normal gait. Vital Signs: 21:58 BP 140 / 80; Pulse 73; Resp 16 S; Pulse Ox 97% on R/A; Weight 90.72 kg (R); Height 5 bb ft. 10 in. (177.80 cm) (R); 01/23 02:03 BP 126 / 75; Pulse 69; Resp 18; Temp 97.5; Pulse Ox 100% on R/A; Pain 0/10; ar5 05:58 BP 122 / 68; Pulse 69; Resp 18; Temp 97.9; Pulse Ox 100% on R/A; Pain 0/10; ar5 10:03 BP 138 / 74; Pulse 88; Resp 16; Pulse Ox 99% ; Pain 0/10; ms 01/22 21:58 Body Mass Index 28.70 (90.72 kg, 177.80 cm) bb MDM: 01/22 21:44 Patient medically screened. rn 01/23 03:10 Differential diagnosis: suicidal ideation, suicidal gesture. Data reviewed: vital rn signs, nurses notes, lab test result(s), and as a result, I will admit patient. Counseling: I had a detailed discussion with the patient and/or guardian regarding: the historical points, exam findings, and any diagnostic results supporting the discharge/admit diagnosis, lab results, radiology results, the need to transfer to another facility, [facility] does not immediately have the required specialist. ED course: Pt with suicidal ideation and gesture, no hard/soft signs of neck trauma, is medically cleared, has RALPH, will transfer for psychiatric evaluation and stabilization.. 13:48 ED course: Pt walked out of ED, stating he was going home. PD notified. . ED course: kb Informed by MARIELLE that pt was picked up and taken to [facility]. Pt is in custody. . 01/22 21:39 Order name: Acetaminophen; Complete Time: 00:08 [facility] 01/22 21:39 Order name: Basic Metabolic Panel; Complete Time: 00:08 [facility] 01/22 21:39 Order name: CBC with Diff; Complete Time: 00:08 w 01/22 21:39 Order name: ETOH Level; Complete Time: 00:08 w 01/22 21:39 Order name: Hepatic Function; Complete Time: 00:08 [facility] 01/22 21:39 Order name: PT-INR; Complete Time: 00:08 w 01/22 21:39 Order name: Ptt, Activated; Complete Time: 00:08 [facility] 01/22 21:39 Order name: Salicylate; Complete Time: 00:08 [facility] 01/22 21:39 Order name: Urine Drug Screen; Complete Time: 01:21 snw 01/22 21:39 Order name: EKG; Complete Time: 21:40 [facility] 01/23 00:21 Order name: Urine Dipstick--Ancillary (enter results); Complete Time: 01:21 mt 01/23 07:33 Order name: Diet Finger Food; Complete Time: 07:33 bd 01/23 12:46 Order name: Diet Finger Food; Complete Time: 12:47 ss 01/22 21:39 Order name: EKG - Nurse/Tech; Complete Time: 22:26 snw 01/22 21:39 Order name: IV Saline Lock; Complete Time: 22:26 snw 01/22 21:39 Order name: Labs collected and sent; Complete Time: 22:26 snw 01/22 21:39 Order name: Urine Dipstick-Ancillary (obtain specimen); Complete Time: 00:10 snw Administered Medications: 01:47 Drug: Nicotine 21 mg/24 hr 1 patches {Note: applied to the left arm.} Route: mg2 Transdermal; Site: affected area; 03:00 Follow up: Response: No adverse reaction jb4 Disposition: 01/23/18 13:50 Patient left the facility after being seen by provider. Preliminary diagnosis are Suicide attempt, Suicidal ideations. - Patient left due to (see nurse's notes). Addendum: 01/25/2018 07:02 Co-signature as Attending Physician, Bay Amanda MD. r n Signatures: Dispatcher [employer] EDMichell Gonzalez, DRAFTER PATENT-C DRAFTER PATENT-Ckb Dede Cooper, DRAFTER PATENT-C DRAFTER PATENT-Csnw Jeff Simpson, HAZARDOUS MATERIALS TANKER DRIVER HAZARDOUS MATERIALS TANKER DRIVER em July Fernandez RN RN bb Nieto, Roman, MD MD rn Gardose, Michele, RN RN mg2 Bryson, James RN jb4 Corrections: (The following items were deleted from the chart) 01/23 13:49 03:12 01/23/2018 03:12 [facility] to [facility]. Diagnosis is Suicidal kb ideations. Reason for transfer: Higher level of care. Accepting physician is . Condition is Stable. Problem is an ongoing problem. Symptoms are unchanged. rn 13:53 13:50 01/23/2018 13:50 Patient left the facility after being seen by provider. em Preliminary diagnosis is Suicide attempt; Suicidal ideations. Reason stated they are leaving due to (see nurse's notes). kb
--- NOTE | 2018-01-23 07:42 | EKG ---
Test Date: 2018-01-22 Test Time: 22:21:48 [employer] Operator: GEMINI MEASUREMENT RESULTS: Intervals: Rate: 65 CT: 146 QRSD: 84 QT: 374 QTc: 388 [place]: P: 47 CT: 146 QRS: 47 T: 49 INTERPRETIVE STATEMENTS: Normal sinus rhythm with sinus arrhythmia Normal ECG Compared to ECG 08/05/2014 10:23:39 No significant changes Electronically Signed On 01-23-18 07:41:48 PACKAGING DESIGNER by Brandt Sullivan
[2018-01-23 14:27] VITALS: TEMP 97.9
[2018-01-23 14:29] VITALS: BP 138/74; O2SAT 99
== END 2018-01-23 13:53 | disposition left against medical advice (07) ==
LOC: ER 21:32
DX: T14.91XA Suicide attempt, initial encounter (principal); X83.8XXA Intentional self-harm by other specified means, initial encounter; Y93.9 Activity, unspecified; Y92.9 Unspecified place or not applicable; Z88.0 Allergy status to penicillin; Z88.8 Allergy status to other drugs, medicaments and biological substances; F32.9 Major depressive disorder, single episode, unspecified
CPT/HCPCS: 36415; 80048; 80076; 80307; 80320; 80329; 81003; 85025; 85610; 85730; 93005; 99285

== ENCOUNTER 2018-11-11 12:31 | Emergency (ER) | payer SELFPAY ==
[2018-11-11] MEDS ORDERED: LIDOCAINE 1% MPF 5 ML VIAL ONE (13:48)
--- NOTE | 2018-11-11 14:11 | EDPHYS ---
Physician Documentation [facility] Name: Brennen Dewey Age: 28 yrs Sex: Male : 1990 Arrival Date: 11/11/2018 Time: 12:33 Bed 24 Private MD: ED Physician Nas Restrepo HPI: 11/11 14:09 This 28 yrs old Male presents to ER via Ambulatory with complaints of Facial jr8 Swelling. 14:09 Onset: The symptoms/episode began/occurred last week. pt reports chronic dental caries, jr8 left lower jaw swelling since last week. Historical: - Allergies: 12:43 Albuterol; sv 12:43 PENICILLINS; sv - PMHx: 12:43 Depression; sv - PSHx: 12:43 None; sv - Immunization history:: Adult Immunizations not up to date. - Social history:: Smoking status: unknown. - Ebola Screening: : Patient negative for fever greater than or equal to 101.5 degrees Fahrenheit, and additional compatible Ebola Virus Disease symptoms Patient denies exposure to infectious person Patient denies travel to an Ebola-affected area in the 21 days before illness onset No symptoms or risks identified at this time. ROS: 14:09 Constitutional: Negative for fever, chills, and weight loss, Eyes: Negative for injury, jr8 pain, redness, and discharge, Neck: Negative for injury, pain, and swelling, Cardiovascular: Negative for chest pain, palpitations, and edema, Respiratory: Negative for shortness of breath, cough, wheezing, and pleuritic chest pain, Abdomen/GI: Negative for abdominal pain, nausea, vomiting, diarrhea, and constipation, Back: Negative for injury and pain, MS/Extremity: Negative for injury and deformity, Skin: Negative for injury, rash, and discoloration, Neuro: Negative for headache, weakness, numbness, tingling, and seizure. 14:09 ENT: Positive for dental pain. Exam: 14:09 Constitutional: This is a well developed, well nourished patient who is awake, alert, jr8 and in no acute distress. Head/Face: Normocephalic, atraumatic. Eyes: Pupils equal round and reactive to light, extra-ocular motions intact. Lids and lashes normal. Conjunctiva and sclera are non-icteric and not injected. Cornea within normal limits. Periorbital areas with no swelling, redness, or edema. Neck: Trachea midline, no thyromegaly or masses palpated, and no cervical lymphadenopathy. Supple, full range of motion without nuchal rigidity, or vertebral point tenderness. No Meningismus. Chest/axilla: Normal chest wall appearance and motion. Nontender with no deformity. No lesions are appreciated. Cardiovascular: Regular rate and rhythm with a normal S1 and S2. No gallops, murmurs, or rubs. Normal PMI, no JVD. No pulse deficits. Respiratory: Lungs have equal breath sounds bilaterally, clear to auscultation and percussion. No rales, rhonchi or wheezes noted. No increased work of breathing, no retractions or nasal flaring. Abdomen/GI: Soft, non-tender, with normal bowel sounds. No distension or tympany. No guarding or rebound. No evidence of tenderness throughout. 14:09 ENT: Dental exam: abscess, that is moderate, specifically in the lower left first molar (#19), Breath odor: foul. Vital Signs: 12:43 BP 139 / 91; Pulse 87; Resp 18; Temp 98.4(O); Pulse Ox 99% ; Weight 88.45 kg; Height 5 sv ft. 10 in. (177.80 cm); 12:43 Body Mass Index 27.98 (88.45 kg, 177.80 cm) sv Procedures: 14:03 I \T\ D: Incision and drainage was performed for an abscess of the left jaw Anesthetized jr8 with 2 ml's 1% Lidocaine. Incised with drained with 18 G needle. Drained moderate amount the patient tolerated the procedure well. MDM: 13:37 Patient medically screened. jr8 14:09 Data reviewed: vital signs, nurses notes, and as a result, I will discharge patient. jr8 Data interpreted: Pulse oximetry: on room air is 99 %. Interpretation: normal. Counseling: I had a detailed discussion with the patient and/or guardian regarding: the historical points, exam findings, and any diagnostic results supporting the discharge/admit diagnosis, the need for outpatient follow up, a dentist, to return to the emergency department if symptoms worsen or persist or if there are any questions or concerns that arise at home. Administered Medications: No medications were administered Disposition: 16:21 Co-signature as Attending Physician, Nas Restrepo MD I agree with the assessment and ana plan of care. Disposition: 11/11/18 14:10 Discharged to Home. Impression: Periapical abscess without sinus. - Condition is Stable. - Discharge Instructions: Dental Abscess, Dental Pain. - Prescriptions for Clindamycin HCl 300 mg Oral Capsule - take 1 capsule by ORAL route every 6 hours for 7 days; 28 capsule. Ibuprofen 600 mg Oral Tablet - take 1 tablet by ORAL route every 6 hours As needed take with food; 30 tablet. Tylenol- Codeine #3 300-30 mg Oral Tablet - take 2 tablets by ORAL route every 6 hours As needed; 12 tablet. - Medication Reconciliation Form, Thank You Letter, Antibiotic Education, Prescription Opioid Use form. - Follow up: Private Physician; When: 5 - 6 days; Reason: Recheck today's complaints, Continuance of care, Re-evaluation by your physician. - Problem is new. - Symptoms have improved. Signatures: Mel Fuentes RN RN sv Anderson, Corey, MD MD cha Williams, Irene, RN RN iw Roszak, Josh, PA PA jr8 Corrections: (The following items were deleted from the chart) 14:20 14:10 11/11/2018 14:10 Discharged to Home. Impression: Periapical abscess without iw sinus. Condition is Stable. Forms are Medication Reconciliation Form, Thank You Letter, Antibiotic Education, Prescription Opioid Use. Follow up: Private Physician; When: 5 - 6 days; Reason: Recheck today's complaints, Continuance of care, Re-evaluation by your physician. Problem is new. Symptoms have improved. jr8
--- NOTE | 2018-11-11 14:11 | ER ---
Nurse's Notes [facility] Name: Brennen Dewey Age: 28 yrs Sex: Male : 1990 Arrival Date: 11/11/2018 Time: 12:33 Bed 24 Private MD: Diagnosis: Periapical abscess without sinus Presentation: 11/11 12:43 Presenting complaint: Patient states: left jaw/facial swelling "I have an abscess." sv started last week. Transition of care: patient was not received from another setting of care. Onset of symptoms was November 2018. Risk Assessment: Do you want to hurt yourself or someone else? Patient reports no desire to harm self or others. Care prior to arrival: None. 12:43 Method Of Arrival: Ambulatory sv 12:43 Acuity: SELENA 4 sv 14:18 Initial Sepsis Screen: Does the patient meet any 2 criteria? No. Patient's initial iw sepsis screen is negative. Does the patient have a suspected source of infection? No. Patient's initial sepsis screen is negative. Triage Assessment: 12:43 General: Appears in no apparent distress. uncomfortable, Behavior is calm, cooperative, sv appropriate for age. Pain: Complains of pain in left cheek and left mandible. Neuro: Level of Consciousness is awake, alert, obeys commands, Gait is steady. Respiratory: Airway is patent Respiratory effort is even, unlabored. Historical: - Allergies: 12:43 Albuterol; sv 12:43 PENICILLINS; sv - PMHx: 12:43 Depression; sv - PSHx: 12:43 None; sv - Immunization history:: Adult Immunizations not up to date. - Social history:: Smoking status: unknown. - Ebola Screening: : Patient negative for fever greater than or equal to 101.5 degrees Fahrenheit, and additional compatible Ebola Virus Disease symptoms Patient denies exposure to infectious person Patient denies travel to an Ebola-affected area in the 21 days before illness onset No symptoms or risks identified at this time. Screenin:49 Abuse screen: Denies threats or abuse. Denies injuries from another. Nutritional iw screening: No deficits noted. Tuberculosis screening: No symptoms or risk factors identified. Fall Risk None identified. Assessment: 13:49 General: Appears in no apparent distress. comfortable, Behavior is calm, cooperative. iw Pain: Complains of pain in left mandible and left cheek. Neuro: Level of Consciousness is awake, alert, obeys commands, Oriented to person, place, time, situation, Moves all extremities. Cardiovascular: Patient's skin is warm and dry. Respiratory: Airway is patent. Derm: Skin is intact, is healthy with good turgor. Musculoskeletal: Range of motion: intact in all extremities. Vital Signs: 12:43 BP 139 / 91; Pulse 87; Resp 18; Temp 98.4(O); Pulse Ox 99% ; Weight 88.45 kg; Height 5 sv ft. 10 in. (177.80 cm); 12:43 Body Mass Index 27.98 (88.45 kg, 177.80 cm) sv ED Course: 12:33 Patient arrived in ED. rg4 12:43 Triage completed. sv 12:44 Arm band placed on. sv 13:15 Camille Silveira, RN is Primary Nurse. iw 13:37 Devyn Fields PA is PHCP. jr8 13:37 Nas Restrepo MD is Attending Physician. jr8 13:50 Patient has correct armband on for positive identification. iw 14:06 Assist provider with I \\T\\ D: of an abscess on left Performed by Devyn POSADA Patient iw tolerated well. 14:17 Patient did not have IV access during this emergency room visit. iw Administered Medications: No medications were administered Outcome: 14:10 Discharge ordered by . jr8 14:17 Discharged to home iw 14:20 Condition: good iw 14:20 Discharge instructions given to patient, Instructed on discharge instructions, follow up and referral plans. medication usage, Demonstrated understanding of instructions, follow-up care, medications, Prescriptions given X 3. 14:20 Patient left the ED. iw Signatures: Mel Fuentes, RN RN Camille Silveira, RN RN iw Devyn Fields PA PA jrAbi Kirkland rg4
[2018-11-11 14:26] VITALS: BP 139/91; TEMP 98.4; O2SAT 99
== END 2018-11-11 14:20 | disposition home or self-care (01) ==
LOC: ER 12:31
PROC: 0C96XZZ Drainage of Lower Gingiva, External Approach (ICD-10-PCS; principal; 2018-11-11)
DX: K04.7 Periapical abscess without sinus (principal); Z88.0 Allergy status to penicillin; Z88.8 Allergy status to other drugs, medicaments and biological substances
CPT/HCPCS: 99283

== ENCOUNTER 2019-02-20 23:55 | Emergency (ER) | payer SELFPAY ==
[2019-02-21] MEDS ORDERED: LEVALBUTEROL 1.25 MG/3 ML NEB ONE (00:31)
[2019-02-21] MEDS ORDERED: BENZONATATE 100 MG CAP PO ONE (00:31)
--- NOTE | 2019-02-21 01:19 | EDPHYS ---
Physician Documentation [facility] Name: Brennen Dewey Age: 29 yrs Sex: Male : 1990 Arrival Date: 02/20/2019 Time: 23:57 Bed 18 Private MD: ED Physician Gasper Carr HPI: 02/21 00:20 This 29 yrs old Male presents to ER via Ambulatory with complaints of Cough, cp Nasal Congestion, Body Aches. 00:20 The patient or guardian reports cough, that is constant, with productive sputum. Onset: cp The symptoms/episode began/occurred 2-3 days. Severity of symptoms: in the emergency department the symptoms are unchanged, despite home interventions. Associated signs and symptoms: Pertinent positives: vomiting, Pertinent negatives: diarrhea, ear ache, fever. Historical: - Allergies: 00:12 Albuterol; ch 00:12 PENICILLINS; ch - PMHx: 00:12 Depression; SI attempt after drug use. does not use drugs any more; Bronchitis; ch - PSHx: 00:12 None; ch - Immunization history:: Adult Immunizations up to date. - Social history:: Smoking status: Patient uses tobacco products, smokes one pack cigarettes per day. Patient uses alcohol, occasionally. - Ebola Screening: : Patient negative for fever greater than or equal to 101.5 degrees Fahrenheit, and additional compatible Ebola Virus Disease symptoms Patient denies exposure to infectious person Patient denies travel to an Ebola-affected area in the 21 days before illness onset No symptoms or risks identified at this time. ROS: 00:25 Constitutional: Negative for body aches, chills, fever, poor PO intake. cp 00:25 Eyes: Negative for injury, pain, redness, and discharge. cp 00:25 Cardiovascular: Negative for chest pain. cp 00:25 ENT: Positive for sore throat, Negative for drainage from ear(s), ear pain, sinus pain, cp difficulty swallowing, difficulty handling secretions. 00:25 Respiratory: Positive for cough, Negative for wheezing. 00:25 Abdomen/GI: Negative for abdominal pain, diarrhea, constipation, active vomiting. 00:25 Skin: Negative for rash. 00:25 Neuro: Negative for altered mental status, headache. 00:25 All other systems are negative. Exam: 00:33 Constitutional: The patient appears in no acute distress, alert, awake, non-toxic, well cp developed, well nourished, afebrile 00:33 Head/Face: Normocephalic, atraumatic. cp 00:33 Eyes: Periorbital structures: appear normal, Conjunctiva: normal, no exudate, no injection, Lids and lashes: appear normal, bilaterally. 00:33 ENT: External ear(s): are unremarkable, Ear canal(s): are normal, clear, TM's: dullness, bilaterally, Nose: is normal, Mouth: Lips: moist, Oral mucosa: moist, Posterior pharynx: Airway: no evidence of obstruction, patent, Tonsils: no enlargement, no exudate, Uvula: midline, erythema, that is mild, exudate, is not appreciated. 00:33 Neck: ROM/movement: is normal, is supple, no meningismus, no nuchal rigidity. 00:33 Chest/axilla: Inspection: normal, Palpation: is normal, no crepitus, no tenderness. 00:33 Cardiovascular: Rate: tachycardic, Rhythm: regular. 00:33 Respiratory: the patient does not display signs of respiratory distress, Respirations: normal, no use of accessory muscles, no retractions, no splinting, no tachypnea, labored breathing, is not present, Breath sounds: are clear throughout, no decreased breath sounds, no stridor, no wheezing. 00:33 Abdomen/GI: Inspection: abdomen appears normal. 00:33 Neuro: Orientation: to person, place \T\ time. Mentation: is normal. Vital Signs: 00:12 BP 137 / 77; Pulse 104; Resp 20; Temp 98.0(O); Pulse Ox 98% on R/A; Weight 92.99 kg; ch Height 5 ft. 9 in. (175.26 cm); Pain 5/10; 01:25 BP 124 / 68; Pulse 92; Resp 14; Temp 98.0(O); Pulse Ox 99% on R/A; Pain 3/10; ch 00:12 Body Mass Index 30.27 (92.99 kg, 175.26 cm) ch MDM: 00:04 Patient medically screened. cp 01:00 Differential Diagnosis: Bronchitis Influenza Upper Respiratory Infection Otitis Media cp Pneumonia. 01:18 Data reviewed: vital signs, nurses notes, lab test result(s). 02/21 00:17 Order name: Influenza Screen (a \T\ B) 02/21 00:17 Order name: Strep cp 02/21 01:17 Order name: Throat Culture EDMS Administered Medications: 00:33 Drug: Tessalon Perle 200 mg Route: PO; 01:08 Follow up: Response: No adverse reaction ch 00:33 Drug: Xopenex 1.25 mg Route: Inhalation; 01:08 Follow up: Response: No adverse reaction ch Disposition: 07:35 Co-signature as Attending Physician, Gasper Carr MD I agree with the assessment and tw4 plan of care. Disposition: 02/21/19 01:18 Discharged to Home. Impression: Acute upper respiratory infection, unspecified. - Condition is Stable. - Discharge Instructions: Upper Respiratory Infection, Adult. - Prescriptions for Xopenex HFA 45 mcg/actuation Inhalation HFA aerosol inhaler - inhale 2 puff by INHALATION route every 4-6 hours As needed; 1 Inhaler. Tessalon Perles 100 mg Oral Capsule - take 2 capsule by ORAL route every 8 hours As needed; 20 capsule. - Medication Reconciliation Form, Thank You Letter, Antibiotic Education, Prescription Opioid Use form. - Follow up: Private Physician; When: 2 - 3 days; Reason: Worsening of condition. - Problem is new. - Symptoms have improved. Signatures: Dispatcher [employer] EDNJ Funmilayo Cardenas RN RN Nas Thapa PA PA cp Wadley, Terrence, MD MD tw4 Corrections: (The following items were deleted from the chart) 01:26 01:18 02/21/2019 01:18 Discharged to Home. Impression: Acute upper respiratory ch infection, unspecified. Condition is Stable. Forms are Medication Reconciliation Form, Thank You Letter, Antibiotic Education, Prescription Opioid Use. Follow up: Private Physician; When: 2 - 3 days; Reason: Worsening of condition. Problem is new. Symptoms have improved. cp 02:02/20 00:25 Constitutional: Negative for body aches, chills, fever, poor PO intake, cp cp 02/21 02:02/20 00:25 Eyes: Negative for injury, pain, redness, and discharge, cp cp 02/21 02:02/20 00:25 ENT: Negative for drainage from ear(s), ear pain, difficulty swallowing, cp difficulty handling secretions, cp 02/21 01:02/20 00:25 Cardiovascular: Negative for chest pain, cp cp 02/21 01:02/20 00:25 Respiratory: Positive for cough, Negative for shortness of breath, cp wheezing, cp 02/21 01:02/20 00:25 Abdomen/GI: Positive for vomiting, Negative for abdominal pain, diarrhea, cp constipation, cp 02/21 01:02/20 00:25 Skin: Negative for rash, cp cp 02/21 01:02/20 00:25 Neuro: Negative for altered mental status, headache, cp cp 02/21 01:02/20 00:25 All other systems are negative, cp cp
--- NOTE | 2019-02-21 01:19 | ER ---
Nurse's Notes [facility] Name: Brennen Dewey Age: 29 yrs Sex: Male : 1990 Arrival Date: 02/20/2019 Time: 23:57 Bed 18 Private MD: Diagnosis: Acute upper respiratory infection, unspecified Presentation: 02/21 00:10 Presenting complaint: Patient states: body aches, cough, congestion, now persistent ch cough and very tired. coughing so hard I vomit x2days. Transition of care: patient was not received from another setting of care. Onset of symptoms was February 18, 2019. Risk Assessment: Do you want to hurt yourself or someone else? Patient reports no desire to harm self or others. Initial Sepsis Screen: Does the patient meet any 2 criteria? No. Patient's initial sepsis screen is negative. Does the patient have a suspected source of infection? No. Patient's initial sepsis screen is negative. Care prior to arrival: None. 00:10 Method Of Arrival: Ambulatory 00:10 Acuity: SELENA 3 ch Triage Assessment: 00:12 General: Appears in no apparent distress. uncomfortable, unkempt, Behavior is calm, ch cooperative, appropriate for age. Pain: Complains of pain in generalized body aches. Historical: - Allergies: 00:12 Albuterol; ch 00:12 PENICILLINS; ch - PMHx: 00:12 Depression; SI attempt after drug use. does not use drugs any more; Bronchitis; ch - PSHx: 00:12 None; ch - Immunization history:: Adult Immunizations up to date. - Social history:: Smoking status: Patient uses tobacco products, smokes one pack cigarettes per day. Patient uses alcohol, occasionally. - Ebola Screening: : Patient negative for fever greater than or equal to 101.5 degrees Fahrenheit, and additional compatible Ebola Virus Disease symptoms Patient denies exposure to infectious person Patient denies travel to an Ebola-affected area in the 21 days before illness onset No symptoms or risks identified at this time. Screenin:13 Abuse screen: Denies threats or abuse. Denies injuries from another. Nutritional ch screening: No deficits noted. Tuberculosis screening: No symptoms or risk factors identified. Fall Risk None identified. Assessment: 00:13 Reassessment: Patient appears in no apparent distress at this time. Patient and/or ch family updated on plan of care and expected duration. Pain level reassessed. Patient is alert, oriented x 3, equal unlabored respirations, skin warm/dry/pink. Cardiovascular: No deficits noted. Heart tones S1 S2 present. Respiratory: Reports cough that is non-productive, persistent Airway is patent Respiratory effort is even, unlabored, Breath sounds are coarse bilaterally. Breath sounds with wheezes bilaterally. in left posterior lower lobe, right posterior middle lobe and right posterior lower lobe. GI: Reports nausea, vomiting. : No signs and/or symptoms were reported regarding the genitourinary system. EENT: Reports nasal congestion nasal discharge sore throat and ears feeling full. Derm: Skin is pink, warm \T\ dry. 01:14 Reassessment: Patient appears in no apparent distress at this time. Patient and/or ch family updated on plan of care and expected duration. Pain level reassessed. Patient is alert, oriented x 3, equal unlabored respirations, skin warm/dry/pink. Reassessment: awaiting results now, contacting lab for results. General: Appears in no apparent distress. comfortable. 01:25 Reassessment: Patient appears in no apparent distress at this time. No changes from previously documented assessment. Patient and/or family updated on plan of care and expected duration. Pain level reassessed. Patient is alert, oriented x 3, equal unlabored respirations, skin warm/dry/pink. Vital Signs: 00:12 BP 137 / 77; Pulse 104; Resp 20; Temp 98.0(O); Pulse Ox 98% on R/A; Weight 92.99 kg; Height 5 ft. 9 in. (175.26 cm); Pain 5/10; 01:25 BP 124 / 68; Pulse 92; Resp 14; Temp 98.0(O); Pulse Ox 99% on R/A; Pain 3/10; 00:12 Body Mass Index 30.27 (92.99 kg, 175.26 cm) ED Course: 02/20 23:57 Patient arrived in ED. ds1 02/21 00:00 Funmilayo Cardenas, TOMÁS is Primary Nurse. ch 00:01 Nas Rincon PA is PHCP. cp 00:01 Gasper Carr MD is Attending Physician. cp 00:11 Triage completed. 00:12 Arm band placed on left wrist. Patient placed in an exam room, on a stretcher. 00:13 No apparent distress. Resting quietly. 00:13 Patient has correct armband on for positive identification. Bed in low position. Call light in reach. Side rails up X 1. 00:13 No provider procedures requiring assistance completed. 00:25 Flu and/or RSV swab sent to lab. Strep swab sent to lab. 01:25 IV discontinued, intact, bleeding controlled, No redness/swelling at site. Pressure dressing applied. Administered Medications: 00:33 Drug: Tessalon Perle 200 mg Route: PO; 01:08 Follow up: Response: No adverse reaction 00:33 Drug: Xopenex 1.25 mg Route: Inhalation; 01:08 Follow up: Response: No adverse reaction Outcome: 01:18 Discharge ordered by MD. cp 01:25 Discharged to home ambulatory, with family. 01:25 Condition: stable 01:25 Discharge instructions given to patient, family, Instructed on discharge instructions, follow up and referral plans. medication usage, Demonstrated understanding of instructions, follow-up care, medications, Prescriptions given X 1. 01:26 Patient left the ED. Signatures: Funmilayo Cardenas RN RN Sera Arce ds1 Nas Rincon PA PA cp
[2019-02-21 01:34] VITALS: TEMP 98
[2019-02-21 01:36] VITALS: BP 124/68; O2SAT 99
== END 2019-02-21 01:26 | disposition home or self-care (01) ==
LOC: ER 23:55
DX: J06.9 Acute upper respiratory infection, unspecified (principal); F17.210 Nicotine dependence, cigarettes, uncomplicated; Z88.0 Allergy status to penicillin; Z88.8 Allergy status to other drugs, medicaments and biological substances
CPT/HCPCS: 87070; 87081; 87804; 99284

== ENCOUNTER 2020-07-17 00:08 | Emergency (ER) | payer SELFPAY ==
--- NOTE | 2020-07-17 03:13 | ER ---
Nurse's Notes [facility] Name: Brennen Dewey Age: 30 yrs Sex: Male : 1990 Arrival Date: 07/17/2020 Time: 00:09 Bed 19 Private MD: Diagnosis: Chest Wall Pain, Contusion Presentation: 07/17 00:27 Chief complaint: Patient states: became dizzy then passed out 3 days ago, woke up on em the floor with left rib/side pain, unknown how long he was passed out, denies trauma to head, pain with respiration. Care prior to arrival: None. Mechanism of Injury: Fall from standing position. Trauma event details: Injury occurred in the [facility]. 00: Acuity: SELENA 3 em 00:27 Method Of Arrival: Ambulatory em 00:30 Coronavirus screen: Client denies travel out of the [place] in the last 14 days. Ebola em Screen: Patient negative for fever greater than or equal to 101.5 degrees Fahrenheit, and additional compatible Ebola Virus Disease symptoms Patient denies exposure to infectious person. Patient denies travel to an Ebola-affected area in the 21 days before illness onset. No symptoms or risks identified at this time. Initial Sepsis Screen: Does the patient meet any 2 criteria? HR > 90 bpm. No. Patient's initial sepsis screen is negative. Does the patient have a suspected source of infection? No. Patient's initial sepsis screen is negative. Risk Assessment: Do you want to hurt yourself or someone else? Patient reports no desire to harm self or others. Onset of symptoms was July 17, 2020. Historical: - Allergies: 00:30 Albuterol; em 00:30 PENICILLINS; em - PMHx: 00:30 Bronchitis; Depression; SI attempt after drug use. does not use drugs any more; em - PSHx: 00:30 None; em - Immunization history: Last tetanus immunization: - up to date. - Social history:: Smoking status: Patient denies any tobacco usage or history of. Screenin:30 Abuse screen: Denies threats or abuse. Nutritional screening: No deficits noted. em Tuberculosis screening: No symptoms or risk factors identified. Fall Risk None identified. Assessment: 00:30 General: Appears in no apparent distress. uncomfortable, Behavior is cooperative, em restless. Pain: Complains of pain in left lateral anterior chest and left lateral posterior chest Pain currently is 10 out of 10 on a pain scale. Pain began 2-3 days ago. Neuro: Level of Consciousness is awake, alert, obeys commands, Oriented to person, place, time, situation. Cardiovascular: Capillary refill < 3 seconds Patient's skin is warm and dry. Respiratory: Reports pain with cough pain with movement pain with respiration Airway is patent Respiratory effort is even, unlabored, Respiratory pattern is regular, symmetrical. Derm: Skin is intact, is healthy with good turgor, Skin is pink, warm \T\ dry. Musculoskeletal: Capillary refill < 3 seconds, Range of motion: intact in all extremities. 02:16 Reassessment: pt refused labs, IV, and UA, is ok to have EKG done, Dr. Gaxiola notified. em Vital Signs: 00:30 BP 149 / ???; Pulse 104; Resp 20; Temp 97.4; Pulse Ox 99% on R/A; Weight 82.1 kg; em Height 5 ft. 9 in. (175.26 cm); Pain 10/10; 00:31 BP 149 / 104; em 02:30 BP 138 / 93; Pulse 89; Resp 16; Pulse Ox 99% on R/A; em 00:30 Body Mass Index 26.73 (82.10 kg, 175.26 cm) em ED Course: 00:09 Patient arrived in ED. bp1 00:29 Triage completed. em 00:30 Arm band placed on. em 00:30 Patient maintains SpO2 saturation greater than 95% on room air. em 01:08 Chest Pa And Lat (2 Views) XRAY In Process Unspecified. EDMS 01:22 Jeff Simpson, RN is Primary Nurse. em 01:23 Patient has correct armband on for positive identification. Bed in low position. Call em light in reach. 01:30 Jose Cruz Gaxiola MD is Attending Physician. [facility] 03:19 No provider procedures requiring assistance completed. Patient did not have IV access em during this emergency room visit. Administered Medications: No medications were administered Outcome: 03:12 Discharge ordered by . 7 03:19 Discharged to home ambulatory. em 03:19 Condition: stable 03:19 Discharge instructions given to patient, Instructed on discharge instructions, follow up and referral plans. Demonstrated understanding of instructions, follow-up care. 03:19 Patient left the ED. em Signatures: Dispatcher [employer] Jeff Estes RN RN em Paniauga, Brittany bp1 Holmes, Maurice, MD MD mh7
--- NOTE | 2020-07-17 03:13 | EDPHYS ---
Physician Documentation [facility] Name: Brennen Dewey Age: 30 yrs Sex: Male : 1990 Arrival Date: 07/17/2020 Time: 00:09 Bed 19 Private MD: ED Physician Jose Cruz Gaxiola HPI: 07/17 03:04 This 30 yrs old Male presents to ER via Ambulatory with complaints of Fall mh7 Injury, Chest Wall Pain. 03:04 Details of fall: The patient fell from an upright position, while walking. Onset: The mh7 symptoms/episode began/occurred 3 day(s) ago. Associated injuries: The patient sustained injury to the chest, specifically the anterior aspect of left upper chest, tenderness. Severity of symptoms: At their worst the symptoms were moderate, 3 day(s) ago, in the emergency department the symptoms have improved, moderately. 03:04 States that he got dizzy and fell hitting his chest on the ground 3 days ago. Denies mh7 any head trauma or LOC. Denies any fever, abdominal pain, SOB, nausea, vomiting, numbness/tingling, or weakness.. Historical: - Allergies: 00:30 Albuterol; em 00:30 PENICILLINS; em - PMHx: 00:30 Bronchitis; Depression; SI attempt after drug use. does not use drugs any more; em - PSHx: 00:30 None; em - Immunization history: Last tetanus immunization: - up to date. - Social history:: Smoking status: Patient denies any tobacco usage or history of. ROS: 03:04 Constitutional: Negative for fever, chills, and weight loss, Eyes: Negative for injury, mh7 pain, redness, and discharge, ENT: Negative for injury, pain, and discharge, Neck: Negative for injury, pain, and swelling, Respiratory: Negative for shortness of breath, cough, wheezing, and pleuritic chest pain, Abdomen/GI: Negative for abdominal pain, nausea, vomiting, diarrhea, and constipation, Back: Negative for injury and pain, : Negative for injury, bleeding, discharge, and swelling, MS/Extremity: Negative for injury and deformity, Skin: Negative for injury, rash, and discoloration, Neuro: Negative for headache, weakness, numbness, tingling, and seizure, Psych: Negative for depression, anxiety, suicide ideation, homicidal ideation, and hallucinations, Allergy/Immunology: Negative for hives, rash, and allergies, Endocrine: Negative for neck swelling, polydipsia, polyuria, polyphagia, and marked weight changes, Hematologic/Lymphatic: Negative for swollen nodes, abnormal bleeding, and unusual bruising. Exam: 03:04 Constitutional: This is a well developed, well nourished patient who is awake, alert, mh7 and in no acute distress. Head/Face: Normocephalic, atraumatic. Eyes: Pupils equal round and reactive to light, extra-ocular motions intact. Lids and lashes normal. Conjunctiva and sclera are non-icteric and not injected. Cornea within normal limits. Periorbital areas with no swelling, redness, or edema. Neck: Trachea midline, no thyromegaly or masses palpated, and no cervical lymphadenopathy. Supple, full range of motion without nuchal rigidity, or vertebral point tenderness. No Meningismus. 03:04 Cardiovascular: Regular rate and rhythm with a normal S1 and S2. No gallops, murmurs, or rubs. Normal PMI, no JVD. No pulse deficits. Respiratory: Lungs have equal breath sounds bilaterally, clear to auscultation and percussion. No rales, rhonchi or wheezes noted. No increased work of breathing, no retractions or nasal flaring. Abdomen/GI: Soft, non-tender, with normal bowel sounds. No distension or tympany. No guarding or rebound. No evidence of tenderness throughout. Back: No spinal tenderness. No costovertebral tenderness. Full range of motion. Skin: Warm, dry with normal turgor. Normal color with no rashes, no lesions, and no evidence of cellulitis. MS/ Extremity: Pulses equal, no cyanosis. Neurovascular intact. Full, normal range of motion. Neuro: Awake and alert, GCS 15, oriented to person, place, time, and situation. Cranial nerves II-XII grossly intact. Motor strength 5/5 in all extremities. Sensory grossly intact. Cerebellar exam normal. Normal gait. Psych: Awake, alert, with orientation to person, place and time. Behavior, mood, and affect are within normal limits. 03:04 Chest/axilla: Inspection: normal, Palpation: tenderness, that is moderate, of the left breast, that totally reproduces the patient's complaints, Axilla: are normal, Lymph nodes: lymphadenopathy is not appreciated. Vital Signs: 00:30 BP 149 / ???; Pulse 104; Resp 20; Temp 97.4; Pulse Ox 99% on R/A; Weight 82.1 kg; em Height 5 ft. 9 in. (175.26 cm); Pain 10/10; 00:31 BP 149 / 104; em 02:30 BP 138 / 93; Pulse 89; Resp 16; Pulse Ox 99% on R/A; em 00:30 Body Mass Index 26.73 (82.10 kg, 175.26 cm) em MDM: 03:04 Differential diagnosis: abrasion, contusion, fracture. Data reviewed: vital signs, [facility] nurses notes, radiologic studies, plain films. Data interpreted: Pulse oximetry: on room air is 99 %. Interpretation: normal. Counseling: I had a detailed discussion with the patient and/or guardian regarding: the historical points, exam findings, and any diagnostic results supporting the discharge/admit diagnosis, the presence of at least one elevated blood pressure reading (>120/80) during this emergency department visit, radiology results. Response to treatment: the patient's symptoms have mildly improved after treatment. Refusal of service: The patient/guardian displays adequate decision making capability and despite a detailed discussion of alternatives, benefits, risks, and consequences refuses: CT Scan, all lab tests, Medications. 03:12 Patient medically screened. [facility] 07/17 00:31 Order name: Chest Pa And Lat (2 Views) XRAY 07/17 02:08 Order name: EKG; Complete Time: 02:11 [facility] 07/17 02:08 Order name: EKG - Nurse/Tech; Complete Time: 02:28 [facility] 07/17 02:08 Order name: O2 Per Protocol; Complete Time: 02:12 [facility] 07/17 02:08 Order name: O2 Sat Monitoring; Complete Time: 02:12 [facility] Administered Medications: No medications were administered Disposition: 07/17/20 03:12 Discharged to Home. Impression: Chest Wall Pain, Contusion. - Condition is Stable. - Discharge Instructions: Chest Wall Pain, [id number], Chest Contusion, [id number]. - Medication Reconciliation Form, Thank You Letter, Antibiotic Education, Prescription Opioid Use form. - Follow up: Private Physician; When: 1 - 2 days; Reason: Worsening of condition, Recheck today's complaints, Continuance of care, Re-evaluation by your physician. - Problem is new. - Symptoms have improved. Signatures: Dispatcher [employer] Jeff Estes, RN RN Jose Cruz Vergara MD MD mh7 Corrections: (The following items were deleted from the chart) 02: 02:08 Cardiac monitoring ordered. [facility] em : 02:08 IV Saline Lock ordered. [facility] em : 02:08 Labs collected and sent ordered. [facility] em 02:54 02:11 URINE DRUG SCREEN+CHEM UR.LAB.BRZ ordered. [facility] EDMS 02:55 02:11 BASIC METABOLIC PANEL+C.LAB.BRZ ordered. [facility] EDMS 02:55 02:11 HEPATIC FUNCTION+C.LAB.BRZ ordered. [facility] EDMS 02:55 02:11 MAGNESIUM+C.LAB.BRZ ordered. [facility] EDMO 02:55 02:11 PROBNP+C.LAB.BRZ ordered. [facility] EDMS 02:55 02:11 PROTIME (+INR)+COAG.LAB.BRZ ordered. [facility] EDMS 02:55 02:11 TROPONIN (EMERG DEPT USE ONLY)+C.LAB.BRZ ordered. [facility] EDMS 03:19 03:12 07/17/2020 03:12 Discharged to Home. Impression: Chest Wall Pain, Contusion. em Condition is Stable. Forms are Medication Reconciliation Form, Thank You Letter, Antibiotic Education, Prescription Opioid Use. Follow up: Private Physician; When: 1 - 2 days; Reason: Worsening of condition, Recheck today's complaints, Continuance of care, Re-evaluation by your physician. Problem is new. Symptoms have improved. mh7
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
== END 2020-07-17 03:19 | disposition home or self-care (01) ==
LOC: ER 00:08
DX: S20.212A Contusion of left front wall of thorax, initial encounter (principal); W19.XXXA Unspecified fall, initial encounter; Y93.01 Activity, walking, marching and hiking; Z88.0 Allergy status to penicillin; Z88.8 Allergy status to other drugs, medicaments and biological substances
CPT/HCPCS: 71046; 93005; 99284

== ENCOUNTER 2020-11-22 22:04 | Emergency (ER) | payer SELFPAY ==
[2020-11-22 23:00] LABS: Protime INR 0.93
[2020-11-22 23:06] LABS: Basophils % 1.2 % (0-1.3); Hematocrit 38.5 % (39.6-49.0); Lymphocytes % 28.4 % (15.3-44.8); MPV 7.1 fL (7.6-11.3); RBC Red Blood Cell Count 4.39 M/uL (4.33-5.43)
[2020-11-22 23:11] LABS: Potassium 3.7 mmol/L (3.5-5.1)
[2020-11-22] MEDS ORDERED: NA CHLORIDE 0.9% 2,000 ML ONE (23:32)
[2020-11-22] MEDS ORDERED: ONDANSETRON 4 MG/2 ML VIAL ONE (23:32)
[2020-11-22] MEDS ORDERED: MORPHINE 4 MG/ML SYR ONE (23:32)
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
[2020-11-23] MEDS ORDERED: HYDROCODONE/APAP 7.5/325 MG TAB ONE (01:21)
[2020-11-23 01:53] VITALS: O2SAT 100
[2020-11-23 01:56] VITALS: BP 115/68; TEMP 98.1
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
== END 2020-11-23 01:39 | disposition home or self-care (01) ==
LOC: ER 22:04
PROC: 2W3HX1Z Immobilization of Left Thumb using Splint (ICD-10-PCS; principal; 2020-11-23)
DX: S62.502A Fracture of unspecified phalanx of left thumb, initial encounter for closed fracture (principal); S93.601A Unspecified sprain of right foot, initial encounter; S93.401A Sprain of unspecified ligament of right ankle, initial encounter; S00.83XA Contusion of other part of head, initial encounter; V29.40XA Motorcycle driver injured in collision with unspecified motor vehicles in traffic accident, initial encounter; Z72.0 Tobacco use; Z88.0 Allergy status to penicillin; Z88.8 Allergy status to other drugs, medicaments and biological substances
CPT/HCPCS: 36415; 70450; 70486; 71260; 72125; 74177; 76377; 80048; 82565; 85025; 85610; 86850; 86900; 86901; J2405; J7030; Q9967

== ENCOUNTER 2023-09-13 07:57 | Emergency (ER) | payer SELFPAY ==
[2023-09-13] MEDS ORDERED: NA CHLORIDE 0.9% 2,000 ML ONE (08:32)
[2023-09-13 08:53] LABS: Absolute Basophils 0.1 K/uL (0-0.5); Absolute Eosinophils 0.5 K/uL (0-0.5); Absolute Lymphocytes (CBC) 1.8 K/uL (0.7-4.9); Absolute Monocytes 0.7 K/uL (0.1-1.3); Eosinophils % 6.8 % (0-4.4); Hematocrit 42.9 % (39.6-49.0); Hemoglobin 14.5 g/dL (13.6-17.9); Lymphocytes % 25.6 % (15.3-44.8); MCH 30.2 pg (27.0-35.0); MCHC 33.7 g/dL (32.0-36.0); MCV 89.5 fL (80-100); MPV 7.3 fL (7.6-11.3); Monocytes % 10.3 % (3.3-12.3); Neutrophils % 56.3 % (41.7-73.7); Platelets 269 thou/uL (152-406); RBC Red Blood Cell Count 4.79 M/uL (4.33-5.43); Red Cell Distribution Width 12.4 % (12.1-15.2)
[2023-09-13 09:07] LABS: Magnesium 2.2 mg/dL (1.6-2.4)
--- NOTE | 2023-09-13 10:49 | EDPHYS ---
Physician Documentation [facility] Name: Brennen Dewey Age: 33 yrs Sex: Male : 1990 Arrival Date: 09/13/2023 Time: 07:57 Bed 12 Private MD: ED Physician Bay Amanda HPI: 09/12 09:12 This 33 yrs old Male presents to ER via Ambulatory with complaints of Heat Exposure, rn Headache. 09:13 Patient reports works with [employer], was working hard yesterday, feels like he got rn dehydrated, started cramping, generalized weakness but no syncope. Went home ate dinner and fell asleep because he was so tired. Woke up this morning still feeling lightheaded and weak, called his boss and told him he was not going to work and came to the ER for evaluation. No other medical problems. No syncope. No chest pain or shortness of breath. Does not feel sick. No fever.. Onset: The symptoms/episode began/occurred yesterday. Severity of symptoms: At their worst the symptoms were moderate in the emergency department the symptoms are unchanged. The patient has not experienced similar symptoms in the past. The patient has not recently seen a physician. Historical: - Allergies: 08:11 Albuterol; ap3 08:11 PENICILLINS; ap3 - Home Meds: 08:11 None [Active]; ap3 - PMHx: 08:11 Gastroesophageal reflux disease; ap3 - Immunization history:: Client reports having NOT received the Covid vaccine. - Infectious Disease History:: Denies. - Social history:: Smoking status: Patient reports the use of cigarette tobacco products, Reported history of juuling and/or vaping. - Family history:: not pertinent. - Hospitalizations: : No recent hospitalization is reported. ROS: 09:13 Constitutional: Negative for fever, chills, and weight loss, Eyes: Negative for injury, rn pain, redness, and discharge, Cardiovascular: Negative for chest pain, palpitations, and edema, Respiratory: Negative for shortness of breath, cough, wheezing, and pleuritic chest pain, Abdomen/GI: Negative for abdominal pain, nausea, vomiting, diarrhea, and constipation, Back: Negative for injury and pain, MS/Extremity: Positive for muscle cramping in the legs Skin: Negative for injury, rash, and discoloration, Neuro: Positive for generalized weakness Exam: 09:13 Constitutional: This is a well developed, well nourished patient who is awake, alert, rn and in no acute distress. Ambulatory to triage without assistance Head/Face: Normocephalic, atraumatic. Cardiovascular: Regular rate and rhythm. No pulse deficits. Respiratory: No increased work of breathing, no retractions or nasal flaring. Abdomen/GI: Soft, non-tender MS/ Extremity: Pulses equal, no cyanosis. Neuro: Awake and alert, GCS 15. Motor strength 5/5 in all extremities. Sensory grossly intact. Cerebellar exam normal. Normal gait. Vital Signs: 08:08 BP 152 / 84; Pulse 82; Temp 98.7; Pulse Ox 98% on R/A; Weight 81.65 kg; Height 5 ft. 9 ap3 in. ; Pain 5/10; 10:09 BP 116 / 81; Pulse 62; Resp 18; Pulse Ox 100% ; ap3 08:08 Body Mass Index 26.58 (81.65 kg, 175.26 cm) ap3 08:08 Pain Scale: Adult ap3 MDM: 08:06 Patient medically screened. rn 10:48 Differential Diagnosis Heat exhaustion, dehydration, electrolyte abnormality.. Data rn reviewed: vital signs, nurses notes, lab test result(s), and as a result, I will discharge patient. Counseling: I had a detailed discussion with the patient and/or guardian regarding the historical points, exam findings, and any diagnostic results supporting the discharge/admit diagnosis, lab results, the need for outpatient follow up, to return to the emergency department if symptoms worsen or persist or if there are any questions or concerns that arise at home. Response to treatment: the patient's symptoms have markedly improved after treatment, and as a result, I will discharge patient. Special discussion: I discussed with the patient/guardian in detail that at this point there is no indication for admission to the hospital. It is understood, however, that if the symptoms persist or worsen the patient needs to return immediately for re-evaluation. 09/12 08:16 Order name: CBC with Diff; Complete Time: 09:09 rn 08 08:16 Order name: Basic Metabolic Panel; Complete Time: 09: rn 09/12 08:16 Order name: Magnesium; Complete Time: : rn 09/12 08:16 Order name: IV Start; Complete Time: 08:48 rn Administered Medications: 08:48 Drug: NS 0.9% IV 1000 ml IV at 1 bolus Per protocol; 1000 mL bolus Route: IV; Rate: 1 ap3 bolus; Site: left wrist; 15:20 Follow up: IV Status: Completed infusion; IV Intake: 1000ml ap3 08:48 Drug: NS 0.9% IV 1000 ml IV at 1 bolus Per protocol; 1000 mL bolus Route: IV; Rate: 1 ap3 bolus; Site: left wrist; 15:19 Follow up: IV Status: Completed infusion; IV Intake: 1000ml ap3 Disposition Summary: 09/13/23 10:49 Discharge Ordered Notes: Location: Home rn Problem: new rn Symptoms: have improved rn Condition: Stable rn Diagnosis - Heat exhaustion, unspecified rn - Heat fatigue, transient rn Followup: rn - With: Private Physician - When: As needed - Reason: Recheck today's complaints, Re-evaluation by your physician Discharge Instructions: - Discharge Summary Sheet rn - Dehydration, Adult rn - Heat Exhaustion rn Forms: - Medication Reconciliation Form rn - Antibiotic nocturnist - Prescription Opioid Use rn - Patient Portal Instructions rn - Leadership Thank You Letter rn Signatures: Dispatcher [employer] Bay Correia MD MD rn Prokisch, Amanda, RN RN ap3
--- NOTE | 2023-09-13 10:49 | ER ---
Nurse's Notes [facility] Name: Brennen Dewey Age: 33 yrs Sex: Male : 1990 Arrival Date: 09/13/2023 Time: 07:57 Bed 12 Private MD: Diagnosis: Heat exhaustion, unspecified;Heat fatigue, transient Presentation: 09/12 08:08 Chief complaint: Patient states: he was working outside a lot yesterday, when he got ap3 hot and started vomiting. patient reports he woke up this morning with a bad headache and body aches. Coronavirus screen: Client presents with at least one sign or symptom that may indicate coronavirus-19. Ebola Screen: No symptoms or risks identified at this time. Initial Sepsis Screen: Does the patient meet any 2 criteria? No. Patient's initial sepsis screen is negative. Does the patient have a suspected source of infection? No. Patient's initial sepsis screen is negative. Risk Assessment: Do you want to hurt yourself or someone else? Patient reports no desire to harm self or others. Onset of symptoms was September 12, 2023. 08:08 Method Of Arrival: Ambulatory ap3 08:08 Acuity: SELENA 3 ap3 Triage Assessment: 08:11 General: Appears in no apparent distress. Behavior is calm, cooperative, appropriate ap3 for age. Pain: Complains of pain in head, and generalized body aches Pain currently is 5 out of 10 on a pain scale. Pain began gradually, 1 day ago. Neuro: Level of Consciousness is awake, alert, obeys commands, Oriented to person, place, time, situation, Gait is steady, Speech is normal. Neuro: Reports headache in entire. Cardiovascular: Patient's skin is warm and dry. Respiratory: Airway is patent Respiratory effort is even, unlabored, Respiratory pattern is regular, symmetrical. Historical: - Allergies: 08:11 Albuterol; ap3 08:11 PENICILLINS; ap3 - Home Meds: 08:11 None [Active]; ap3 - PMHx: 08:11 Gastroesophageal reflux disease; ap3 - Immunization history:: Client reports having NOT received the Covid vaccine. - Infectious Disease History:: Denies. - Social history:: Smoking status: Patient reports the use of cigarette tobacco products, Reported history of juuling and/or vaping. - Family history:: not pertinent. - Hospitalizations: : No recent hospitalization is reported. Screenin:13 Abuse screen: Denies threats or abuse. Nutritional screening: No deficits noted. ap3 Tuberculosis screening: No symptoms or risk factors identified. 08:13 [facility] ED Fall Risk Assessment (Adult) History of falling in the last 3 months, ap3 including since admission No falls in past 3 months (0 pts) Confusion or Disorientation No (0 pts) Intoxicated or Sedated No (0 pts) Impaired Gait No (0 pts) Mobility Assist Device Used No (0 pt) Altered Elimination No (0 pt) Score/Fall Risk Level 0 - 2 = Low Risk Oriented to surroundings, Maintained a safe environment, Educated pt \T\ family on fall prevention, incl call for assistance when getting out of bed, Assessed \T\ reinforced patient's understanding of fall precautions, Hourly rounding (assess needs \T\ fall precautionary measures) done, Used ambulatory aids as needed (educated on \T\ assisted with), Used gait belt as appropriate. Assessment: 10:09 Reassessment: No changes from previously documented assessment. Patient and/or family ap3 updated on plan of care and expected duration. Pain level reassessed. Patient states feeling better. Patient states symptoms have improved. Vital Signs: 08:08 BP 152 / 84; Pulse 82; Temp 98.7; Pulse Ox 98% on R/A; Weight 81.65 kg; Height 5 ft. 9 ap3 in. ; Pain 5/10; 10:09 BP 116 / 81; Pulse 62; Resp 18; Pulse Ox 100% ; ap3 08:08 Body Mass Index 26.58 (81.65 kg, 175.26 cm) ap3 08:08 Pain Scale: Adult ap3 ED Course: 08:02 Patient arrived in ED. mg5 08:06 Bay Amanda MD is Attending Physician. rn 08:11 Triage completed. ap3 08:13 Arm band placed on left wrist. ap3 08:48 Patient has correct armband on for positive identification. Bed in low position. Call ap3 light in reach. Side rails up X 1. Provided Education on: medications prior to administration. Pulse ox on. NIBP on. 08:48 Initial lab(s) drawn, by me, sent to lab. Inserted saline lock: 20 gauge in left wrist, ap3 using aseptic technique. Blood collected. 11:31 No provider procedures requiring assistance completed. IV discontinued, intact, ap3 bleeding controlled, No redness/swelling at site. Pressure dressing applied. Administered Medications: 08:48 Drug: NS 0.9% IV 1000 ml IV at 1 bolus Per protocol; 1000 mL bolus Route: IV; Rate: 1 ap3 bolus; Site: left wrist; 15:20 Follow up: IV Status: Completed infusion; IV Intake: 1000ml ap3 08:48 Drug: NS 0.9% IV 1000 ml IV at 1 bolus Per protocol; 1000 mL bolus Route: IV; Rate: 1 ap3 bolus; Site: left wrist; 15:19 Follow up: IV Status: Completed infusion; IV Intake: 1000ml ap3 Medication: 08:13 VIS not applicable for this client. ap3 Intake: 15:19 IV: 1000ml; Total: 1000ml. ap3 15:20 IV: 1000ml; Total: 2000ml. ap3 Outcome: 10:49 Discharge ordered by . rn 11:32 Discharged to home ambulatory, ap3 11:32 Condition: good 11:32 Discharge instructions given to patient, Instructed on discharge instructions, follow up and referral plans. Demonstrated understanding of instructions, follow-up care, 11:32 Patient left the ED. ap3 Signatures: Bay Amanda MD MD rn Prokisch, Amanda, RN RN ap3 Codie Paerce mg5
[2023-09-13 11:38] VITALS: TEMP 98.7
[2023-09-13 11:39] VITALS: BP 116/81; O2SAT 100
== END 2023-09-13 11:32 | disposition home or self-care (01) ==
LOC: ER 07:57
DX: T67.5XXA Heat exhaustion, unspecified, initial encounter (principal); T67.6XXA Heat fatigue, transient, initial encounter
CPT/HCPCS: 36415; 80048; 83735; 85025; 96360; 96361; 99284; J7030

== ENCOUNTER 2024-11-10 01:40 | Emergency (ER) | payer SELFPAY ==
[2024-11-10] MEDS ORDERED: METHYLPREDNISOLONE 125 MG INJ ONE (01:51)
[2024-11-10] MEDS ORDERED: FAMOTIDINE 20 MG/2 ML VIAL IV ONE (01:52)
[2024-11-10] MEDS ORDERED: DIPHENHYDRAMINE 50 MG/ML VIAL ONE (01:52)
--- NOTE | 2024-11-10 03:02 | EDPHYS ---
Physician Documentation [facility] Name: Brennen Dewey Age: 34 yrs Sex: Male : 1990 Arrival Date: 11/10/2024 Time: 01:40 Bed 10 Private MD: ED Physician Baudilio Mullins HPI: 11/10 01:44 This 34 yrs old Other Race Male presents to ER via Unassigned with complaints of sp4 Allergic Reaction. 11/11 01:07 34-year-old male presents with acute allergic hives in response to albuterol. sp4 Historical: - Allergies: 11/10 01:57 Albuterol; vc1 01:57 PENICILLINS; vc1 - Home Meds: 01:57 None [Active]; vc1 - PMHx: 01:57 Gastroesophageal reflux disease; vc1 - PSHx: 01:57 Cholecystectomy; vc1 - Immunization history:: Client reports having NOT received the Covid vaccine. Flu vaccine is not up to date. Patient has never been vaccinated. - Infectious Disease History:: Denies. - Social history:: Smoking status: Patient reports the use of cigarette tobacco products, 1/4 PPD, Reported history of juuling and/or vaping. - Family history:: not pertinent. ROS: 11/11 01:07 Constitutional: Negative for fever, chills, and weight loss, positive for diffuse hives sp4 and itching All other systems are negative, Exam: 01:07 Constitutional: This is a well developed, well nourished patient who is awake, alert, sp4 and in no acute distress. Head/Face: Normocephalic, atraumatic. Eyes: Pupils equal round and reactive to light, extra-ocular motions intact. Lids and lashes normal. Conjunctiva and sclera are not injected. Cornea within normal limits. Periorbital areas with no swelling, redness, or edema. ENT: Nares patent. No nasal discharge, no septal abnormalities noted. Tympanic membranes are normal and external auditory canals are clear. Oropharynx with no redness, swelling, or masses, exudates, or evidence of obstruction, uvula midline. Mucous membranes moist. Neck: Trachea midline, no thyromegaly or masses palpated, and no cervical lymphadenopathy. Supple, full range of motion without nuchal rigidity, or vertebral point tenderness. Chest/axilla: Normal chest wall appearance and motion. Nontender with no deformity. No lesions are appreciated. Cardiovascular: Regular rate and rhythm with a normal S1 and S2. No gallops, murmurs, or rubs. No pulse deficits. Respiratory: Lungs have equal breath sounds bilaterally, clear to auscultation and percussion. No rales, rhonchi or wheezes noted. No increased work of breathing, no retractions or nasal flaring. Abdomen/GI: Soft, with normal bowel sounds. No distension or tympany. No guarding or rebound. No evidence of tenderness throughout. Back: No spinal tenderness. No costovertebral tenderness. Skin: Warm, dry with normal turgor. Normal color with no rashes, positive for diffuse hives MS/ Extremity: Pulses equal, no cyanosis. Neurovascular intact. Full, normal range of motion. Neuro: Awake and alert, GCS 15, oriented to person, place, time, and situation. Cranial nerves II-XII grossly intact. Motor strength 5/5 in all extremities. Sensory grossly intact. Psych: Awake, alert, with orientation to person, place and time. Behavior, mood, and affect are within normal limits Vital Signs: 11/10 01:54 BP 142 / 82; Pulse 89; Resp 16; Temp 97.9; Pulse Ox 100% ; Weight 88.9 kg; Height 5 ft. vc1 7 in. ; Pain 0/10; 03:30 BP 138 / 80; Pulse 85; Resp 16; Pulse Ox 100% ; vc1 01:54 Body Mass Index 30.70 (88.90 kg, 170.18 cm) vc1 01:54 Pain Scale: Adult vc1 Platter Coma Score: 11/11 01:07 Eye Response: spontaneous(4). Motor Response: obeys commands(6). Verbal Response: sp4 oriented(5). Total: 15. MDM: 11/10 01:56 Medical Screening Exam initiated cp 11/11 01:07 Differential diagnosis: anaphylaxis, angioedema, bronchospasm, Carcinoid Myocardial sp4 Ischemia. Data reviewed: vital signs, nurses notes, old medical records. Consideration of Admission/Observation Escalation of care including admission/observation considered. ED course: Patient reported improvement in symptoms. Stable for discharge home with 5-day course of prednisone.. 11/10 01:45 Order name: IV Saline Lock; Complete Time: 02:07 sp4 11/10 01:45 Order name: Labs collected and sent; Complete Time: 02:12 sp4 Administered Medications: 11/10 02:02 Drug: MethylPrednisoLONE IVP 125 mg IVP once Route: IVP; Site: left antecubital; cg 03:00 Follow up: Response: No adverse reaction; Marked relief of symptoms vc1 02:06 Drug: Famotidine IVP 20 mg IVP once; dilute with 10 mL 0.9% NaCl; give over 2 minutes cg Route: IVP; Site: left antecubital; 03:00 Follow up: Response: No adverse reaction; Marked relief of symptoms vc1 02:07 Drug: diphenhydrAMINE IVP 50 mg IVP once Route: IVP; Site: left antecubital; cg 03:00 Follow up: Response: No adverse reaction; Marked relief of symptoms vc1 Disposition: 11/11 01:09 Chart complete. sp4 Disposition Summary: 11/10/24 03:01 Discharge Ordered Notes: Location: Home sp4 Problem: new sp4 Symptoms: have improved sp4 Condition: Stable sp4 Diagnosis - Acute allergic reaction, acute allergic hives sp4 Followup: sp4 - With: Private Physician - When: 7 - 10 days - Reason: Recheck today's complaints Discharge Instructions: - Discharge Summary Sheet sp4 - Hives, [id number] sp4 Forms: - Patient Portal Instructions sp4 Prescriptions: - Prednisone 20 mg Oral Tablet - take 2 tablets ORAL route once daily for 5 days; 10 tablet; Refills: 0, Product sp4 Selection Permitted Signatures: Nas Rincon PA-C PA-C cp Garcia, Cindy, RN RN Cherise Nash RN RN vc1 Baudilio Mullins MD MD sp4
--- NOTE | 2024-11-10 03:02 | ER ---
Nurse's Notes [facility] Name: Brennen Dewey Age: 34 yrs Sex: Male : 1990 Arrival Date: 11/10/2024 Time: 01:40 Bed 10 Private MD: Diagnosis: Acute allergic reaction, acute allergic hives Presentation: 11/10 01:54 Chief complaint: Patient states: Allergic reaction to albuterol nebulizer child was vc1 receiving. Coronavirus screen: Client denies travel out of the [place] in the last 14 days. At this time, the client does not indicate any symptoms associated with coronavirus-19. Ebola Screen: Patient negative for fever greater than or equal to 101.5 degrees Fahrenheit, and additional compatible Ebola Virus Disease symptoms Patient denies exposure to infectious person. Patient denies travel to an Ebola-affected area in the 21 days before illness onset. No symptoms or risks identified at this time. Onset: The symptoms/episode began/occurred acutely, suddenly, just prior to arrival. Anaphylaxis evaluation, no signs or symptoms of anaphylaxis were noted. Initial Sepsis Screen: Does the patient meet any 2 criteria? No. Patient's initial sepsis screen is negative. Does the patient have a suspected source of infection? No. Patient's initial sepsis screen is negative. Risk Assessment: Do you want to hurt yourself or someone else? Patient reports no desire to harm self or others. Onset of symptoms was November 10, 2024. 01:54 Method Of Arrival: Ambulatory vc1 01:54 Acuity: SELENA 3 vc1 Triage Assessment: 02:00 General: Appears in no apparent distress. uncomfortable, slender, Behavior is calm, vc1 cooperative, appropriate for age. Pain: Denies pain. EENT: Reports itchy throat. Neuro: Level of Consciousness is awake, alert, obeys commands, Oriented to person, place, time, situation, Appropriate for age. Cardiovascular: Heart tones S1 S2 present Capillary refill < 3 seconds Patient's skin is warm and dry. Respiratory: Airway is patent Respiratory effort is even, unlabored, Respiratory pattern is regular, symmetrical, Breath sounds are clear bilaterally. GI: No deficits noted. No signs and/or symptoms were reported involving the gastrointestinal system. : No deficits noted. No signs and/or symptoms were reported regarding the genitourinary system. Derm: Skin is intact, is healthy with good turgor, Skin is dry, Skin is normal, Skin temperature is warm. Musculoskeletal: Circulation, motion, and sensation intact. Range of motion: intact in all extremities. Historical: - Allergies: 01:57 Albuterol; vc1 01:57 PENICILLINS; vc1 - Home Meds: 01:57 None [Active]; vc1 - PMHx: 01:57 Gastroesophageal reflux disease; vc1 - PSHx: 01:57 Cholecystectomy; vc1 - Immunization history:: Client reports having NOT received the Covid vaccine. Flu vaccine is not up to date. Patient has never been vaccinated. - Infectious Disease History:: Denies. - Social history:: Smoking status: Patient reports the use of cigarette tobacco products, 1/4 PPD, Reported history of juuling and/or vaping. - Family history:: not pertinent. Screenin:[facility] ED Fall Risk Assessment (Adult) History of falling in the last 3 months, vc1 including since admission No falls in past 3 months (0 pts) Confusion or Disorientation No (0 pts) Intoxicated or Sedated No (0 pts) Impaired Gait No (0 pts) Mobility Assist Device Used No (0 pt) Altered Elimination No (0 pt) Score/Fall Risk Level 0 - 2 = Low Risk Oriented to surroundings, Maintained a safe environment, Educated pt \T\ family on fall prevention, incl call for assistance when getting out of bed, Assessed \T\ reinforced patient's understanding of fall precautions, Hourly rounding (assess needs \T\ fall precautionary measures) done. Abuse screen: Denies threats or abuse. Nutritional screening: No deficits noted. Tuberculosis screening: No symptoms or risk factors identified. Assessment: 01:45 General: See triage assessment. vc1 03:30 Respiratory: Airway is patent Respiratory effort is even, unlabored, Respiratory vc1 pattern is regular, symmetrical. 03:30 Reassessment: Patient appears in no apparent distress at this time. Patient and/or vc1 family updated on plan of care and expected duration. Pain level reassessed. Patient is alert, oriented x 3, equal unlabored respirations, skin warm/dry/pink. Patient states symptoms have improved. Respiratory: Breath sounds are clear bilaterally. Denies shortness of breath. Vital Signs: 01:54 BP 142 / 82; Pulse 89; Resp 16; Temp 97.9; Pulse Ox 100% ; Weight 88.9 kg; Height 5 ft. vc1 7 in. ; Pain 0/10; 03:30 BP 138 / 80; Pulse 85; Resp 16; Pulse Ox 100% ; vc1 01:54 Body Mass Index 30.70 (88.90 kg, 170.18 cm) vc1 01:54 Pain Scale: Adult vc1 Audie Coma Score: 11/11 01:07 Eye Response: spontaneous(4). Motor Response: obeys commands(6). Verbal Response: sp4 oriented(5). Total: 15. ED Course: 11/10 01:44 Patient arrived in ED. gm2 01:44 Baudilio Mullins MD is Attending Physician. sp4 01:49 Cherise Camp RN is Primary Nurse. vc1 01:56 Triage completed. vc1 01:58 Arm band placed on left wrist. vc1 02:00 Patient has correct armband on for positive identification. Bed in low position. Call vc1 light in reach. Provided Education on: Plan of care. 02:11 Inserted saline lock: 20 gauge in left antecubital area, using aseptic technique. Blood vc1 collected. Flushed with 10 mL NS. 03:30 No provider procedures requiring assistance completed. IV discontinued, intact, vc1 bleeding controlled, No redness/swelling at site. Pressure dressing applied. Administered Medications: 02:02 Drug: MethylPrednisoLONE IVP 125 mg IVP once Route: IVP; Site: left antecubital; cg 03:00 Follow up: Response: No adverse reaction; Marked relief of symptoms vc1 02:06 Drug: Famotidine IVP 20 mg IVP once; dilute with 10 mL 0.9% NaCl; give over 2 minutes cg Route: IVP; Site: left antecubital; 03:00 Follow up: Response: No adverse reaction; Marked relief of symptoms vc1 02:07 Drug: diphenhydrAMINE IVP 50 mg IVP once Route: IVP; Site: left antecubital; cg 03:00 Follow up: Response: No adverse reaction; Marked relief of symptoms vc1 Medication: 02:00 VIS not applicable for this client. vc1 Outcome: 03:01 Discharge ordered by . sp4 03:30 Discharged to home ambulatory, vc1 03:30 Condition: stable 03:30 Discharge instructions given to patient, Instructed on discharge instructions, follow up and referral plans. medication usage, Demonstrated understanding of instructions, follow-up care, medications, Prescriptions given X 03:53 Patient left the ED. vc1 Signatures: Anais Brewer, RN RN cg Cherise Camp RN RN vc1 Baudilio Mullins MD MD sp4 Dionne Andersen 2
[2024-11-10 04:29] VITALS: TEMP 97.9; O2SAT 100
[2024-11-10 04:31] VITALS: BP 138/80
== END 2024-11-10 03:53 | disposition home or self-care (01) ==
LOC: ER 01:40
DX: T78.49XA Other allergy, initial encounter (principal); T48.6X5A Adverse effect of antiasthmatics, initial encounter; L50.0 Allergic urticaria; Y92.9 Unspecified place or not applicable; X58.XXXA Exposure to other specified factors, initial encounter
CPT/HCPCS: 96374; 96375; 99284; J1200; J2919

== ENCOUNTER 2024-11-13 19:20 | Emergency (ER) | payer SELFPAY ==
[2024-11-13] MEDS ORDERED: NITROGLYCERIN 0.4 MG/TAB SL ONE (19:45)
[2024-11-13] MEDS ORDERED: ASPIRIN 81 MG CHEWABLE TABLET ONE (19:46)
[2024-11-13] MEDS ORDERED: NA CHLORIDE 0.9% 1,000 ML ONE (20:13)
[2024-11-13] MEDS ORDERED: ACETAMINOPHEN 500 MG TAB ONE (20:13)
[2024-11-13 20:14] LABS: Absolute Lymphocytes (CBC) 2.9 K/uL (0.7-4.9); Hematocrit 45.0 % (39.6-49.0); Hemoglobin 15.5 g/dL (13.6-17.9); MCH 29.4 pg (27.0-35.0); MCHC 34.3 g/dL (32.0-36.0); MCV 85.6 fL (80-100); MPV 7.2 fL (7.6-11.3); Nucleated RBC Absolute Count 0.0 (0-0); Nucleated Red Blood Cells % 0.0 % (0-0); RBC Red Blood Cell Count 5.26 M/uL (4.33-5.43); White Blood Count 8.60 thou/uL (4.3-10.9)
[2024-11-13 20:26] LABS: PT Prothrombin Time 10.2 SECONDS (10-13.0); Protime INR 0.90
[2024-11-13 20:30] LABS: D-Dimer < 0.215 FEUug/mL (0-0.500)
[2024-11-13 20:34] LABS: ALT/SGPT 70 U/L (16-61); AST/SGOT 30 U/L (15-37); Albumin 3.5 g/dL (3.4-5.0); Albumin/Globulin Ratio 1.0 (1.1-1.8); Alkaline Phosphatase 77 U/L (45-117); Anion Gap 9.7 mEq/L (5.0-15.0); BUN Blood Urea Nitrogen 13 mg/dL (7-18); Globulin 3.5 g/dL (2.3-3.5); Glucose Level 120 mg/dL (74-106); Magnesium 2.2 mg/dL (1.6-2.4); NT PRO-BNP 19 pg/mL (<125); Potassium 3.7 mEq/L (3.5-5.1)
--- NOTE | 2024-11-13 20:41 | RAD REPORT ---
EXAMINATION: ONE VIEW CHEST XR CLINICAL INDICATION: Male, 34 years old.,CHEST PAIN TECHNIQUE: Frontal chest projection is submitted. Examination is limited by patient positioning and t echnique. COMPARISON: 07/17/2020 FINDINGS: The lungs are well inflated and clear. No pneumothorax or sizable effusion. The heart is normal in s ize. Mediastinal contours are unremarkable. IMPRESSION: No acute intrathoracic abnormalities.
[2024-11-13 20:46] LABS: Bilirubin Indirect, Calculated 0.1 mg/dL (0.2-0.8); Troponin High Sensitivity < 3.0 pg/mL (<58.9)
[2024-11-13 21:32] LABS: Urine Microscopic Reflex YN NO UMIC
[2024-11-13 21:51] LABS: METHAMPHETAM NEGATIVE (NEGATIVE); THC Cannibis POSITIVE (NEGATIVE)
--- NOTE | 2024-11-13 22:24 | RAD REPORT ---
EXAM: CT Chest For Pe Angio TECHNIQUE: CT angiogram of the chest was performed following intravenous contrast administration, inc luding sagittal and coronal as well as maximum intensity projection reformats. One or more of the following dose reduction techniques were used: Automated exposure control, adjustment of the mA and k V according to patient size, and iterative reconstruction. Unless otherwise specified, incidental findings do not require dedicated imaging follow-up. INDICATION: [facility] MAIN CHEST PAIN Bed Name: 23 Y COMPARISON: None. FINDINGS: LINES/TUBES: None. PULMONARY ARTERIES: Main pulmonary arteries are normal in caliber. No filling defects within the pul monary arteries to suggest pulmonary embolus. LUNGS AND AIRWAYS: The lungs and central airways are clear however a 9 mm ovoid left lower lobe nodul e is noted, with leading elongated opacity which may relate to mucous plugging. PLEURA: No effusion or pneumothorax. HEART AND MEDIASTINUM: The visualized thyroid gland is normal. No mediastinal, hilar, or axillary lym phadenopathy. Heart is unremarkable. No pericardial effusion. SOFT TISSUES AND BONES: No acute osseous abnormality. No significant soft tissue finding. UPPER ABDOMEN: Unremarkable. IMPRESSION: No evidence of acute central pulmonary emboli. 9 mm left lower lobe nodule, probably with adjacent mucous plugging. 2017 Fleischner Society Recommen dations for Lung Nodule(s): Follow-Up based on size (average of long- and short-axis diameters). Use most suspicious nodule for followup. Single solid lung nodule 9+ mm: Consider non-contrast chest CT at 3 months, PET/CT, or tissue samplin g. If this nodule was detected on an incomplete chest CT, first recommend a prompt, non-contrast chest CT. These guidelines do not apply to patients younger than 35 years, immunocompromised patients, and evelyn ents with cancer. F/u in patients with significant comorbidities as clinically warranted. For lung cancer screening, adhere to Lung-RADS guidelines. Reference: Radiology. 2017 Aug; 284(1):228-243 No other suspicious intrathoracic findings..
[2024-11-13] MEDS ORDERED: DIAZEPAM 10 MG/2 ML INJ SYRINGE ONE (22:27)
[2024-11-13] MEDS ORDERED: KETOROLAC 30 MG/ML INJ ONE (22:27)
--- NOTE | 2024-11-14 00:25 | EDPHYS ---
Physician Documentation [facility] Name: Brennen Dewey Age: 34 yrs Sex: Male : 1990 Arrival Date: 11/13/2024 Time: 19:20 Bed 24 Private MD: ED Physician Luís Winters HPI: 11/13 19:45 This 34 yrs old Male presents to ER via Ambulatory with complaints of Chest Pain. cp 19:45 Associated signs and symptoms: Pertinent positives: nausea, left shoulder and left neck cp and back pain. 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 cp 19:45 The patient or guardian reports chest pain that is located primarily in the anterior cp chest wall, left. The pain radiates to the left arm, left jaw. 19:45 The chest pain is described as a pressure. Duration: The patient or guardian reports a cp single episode, that is still ongoing, and unchanged. Historical: - Allergies: 19:31 Albuterol; dd2 19:31 PENICILLINS; dd2 - PMHx: 19:31 Gastroesophageal reflux disease; dd2 - PSHx: 19:31 Cholecystectomy; dd2 - Immunization history:: Adult Immunizations unknown. - Infectious Disease History:: Denies. - Social history:: Smoking status: Patient reports the use of cigarette tobacco products, smokes one-half pack cigarettes per day, Reported history of juuling and/or vaping. ROS: 19:50 Constitutional: Negative for body aches, chills, fever, poor PO intake, cp 19:50 Eyes: Negative for injury, pain, redness, and discharge, cp 19:50 Cardiovascular: Positive for chest pain, 19:50 Respiratory: Negative for cough, shortness of breath, wheezing, 19:50 Abdomen/GI: Negative for abdominal pain, vomiting, diarrhea, constipation, 19:50 Back: Positive for radiated pain, 19:50 Neuro: Negative for altered mental status, dizziness, headache, numbness, syncope, near syncope, weakness, 19:50 All other systems are negative, Exam: 19:49 ECG was reviewed by the Attending Physician. cp 19:55 Constitutional: The patient appears in no acute distress, alert, awake, cp non-diaphoretic, non-toxic, well developed, well nourished, uncomfortable, 19:55 Head/Face: Normocephalic, atraumatic. cp 19:55 Eyes: Periorbital structures: appear normal, Conjunctiva: normal, no exudate, no injection, Sclera: no appreciated abnormality, Lids and lashes: appear normal, bilaterally, 19:55 ENT: External ear(s): are unremarkable, Nose: is normal, Mouth: is normal, Posterior pharynx: Airway: no evidence of obstruction, patent, 19:55 Chest/axilla: Inspection: normal, Palpation: crepitus, is not appreciated, tenderness, that is mild, of the left clavicle and anterior aspect of left upper chest, 19:55 Cardiovascular: Rate: normal, Rhythm: regular, Edema: is not appreciated, JVD: is not appreciated, 19:55 Respiratory: the patient does not display signs of respiratory distress, Respirations: normal, no use of accessory muscles, no retractions, labored breathing, is not present, Breath sounds: are clear throughout, no decreased breath sounds, no stridor, no wheezing, 19:55 Abdomen/GI: Inspection: abdomen appears normal, Palpation: abdomen is soft and non-tender, in all quadrants, 19:55 Neuro: Orientation: to person, place \T\ time. Mentation: is normal, Cerebellar function: is grossly normal, Motor: moves all fours, strength is normal, Sensation: no obvious gross deficits, Vital Signs: 19:28 BP 133 / 100; Pulse 82; Resp 18; Temp 98.5; Pulse Ox 97% ; Weight 90.72 kg; Pain 9/10; dd2 19:47 BP 133 / 89 LA; Pulse 97; Resp 18; Pulse Ox 100% ; rg5 19:48 BP 139 / 99 RA Supine; Pulse 94; Resp 18; Pulse Ox 97% ; Pain 7/10; rg5 20:18 BP 132 / 85; Pulse 87; Resp 18; Pulse Ox 97% on R/A; Pain 6/10; rg5 21:57 BP 115 / 71; Pulse 80; Resp 18; Pulse Ox 98% ; rg5 22:43 BP 119 / 70; Pulse 87; Resp 18; Pulse Ox 97% ; rg5 23:05 BP 113 / 81; Pulse 87; Resp 18; Pulse Ox 97% on R/A; rg5 1010 00:31 BP 113 / 62; Pulse 85; Resp 20; Temp 97.9; Pulse Ox 100% ; jj7 11/13 19:28 Pain Scale: Adult dd2 19:48 Pain Scale: Adult rg5 20:18 Pain Scale: Adult rg5 MDM: 11/13 19:23 Medical Screening Exam initiated 11/14 00:23 Data reviewed: vital signs, nurses notes, lab test result(s), EKG, radiologic studies, cp plain films, and as a result, I will discharge patient. 00:23 Differential diagnosis: abnormal EKG, acute myocardial infarction, acute pericarditis, cp anxiety, chest wall pain, pulmonary embolus, stable angina, thoracic aortic disection, unstable angina. HEART Score: History: Slightly Suspicious (0), ECG: Normal (0), Age: < or = 45 years (0), Risk Factors: 1 or 2 risk factors (1), [+ Family HX] Troponin: < or = 1 x Normal Limit (0), Total Score = 1. I considered the following discharge prescriptions or medication management in the emergency department Medications were administered in the Emergency Department. See MAR. Independent interpretation of the following test(s) in the Emergency Department EKG: See my EKG interpretation above. Counseling: I had a detailed discussion with the patient and/or guardian regarding the historical points, exam findings, and any diagnostic results supporting the discharge/admit diagnosis, lab results, radiology results, the need for outpatient follow up, a linux support engineer, a family practitioner, to return to the emergency department if symptoms worsen or persist or if there are any questions or concerns that arise at home. Response to treatment: the patient's symptoms have mildly improved after treatment, and as a result, I will discharge patient. 11/13 19:47 Order name: Basic Metabolic Panel; Complete Time: 21:14 11/13 21:15 Interpretation: Normal except: CL 108; GLUC 120; GFR 88. 11/13 19:47 Order name: CBC with Diff; Complete Time: 21:14 11/13 21:18 Interpretation: Reviewed. 11/13 19:47 Order name: D-Dimer; Complete Time: 21:14 11/13 19:47 Order name: LFT's; Complete Time: 21:14 11/13 19:47 Order name: Magnesium; Complete Time: 21:14 11/13 19:47 Order name: NT PRO-BNP; Complete Time: 21:14 cp 11/13 19:47 Order name: PT-INR; Complete Time: 21:14 cp 11/13 19:47 Order name: Troponin HS; Complete Time: 21:14 cp 11/13 21:18 Interpretation: Reviewed. cp 11/13 19:47 Order name: CK; Complete Time: 21:14 cp 11/13 19:47 Order name: UA Rfx Juan Francisco Cult if indicated; Complete Time: 22:14 cp 11/13 19:47 Order name: UDS; Complete Time: 22:14 cp 11/13 22:15 Interpretation: Normal except: THC POSITIVE. cp 11/13 22:40 Order name: Troponin High Sensitivity; Complete Time: 23:39 cp 11/13 23:40 Interpretation: Reviewed. cp 11/13 19:47 Order name: XRAY Chest (1 view); Complete Time: 21:14 cp 11/13 21:16 Order name: CT Chest For PE Angio; Complete Time: 22:39 cp 11/13 19:23 Order name: EKG; Complete Time: 19:23 cp 11/13 19:23 Order name: EKG - Nurse/Tech; Complete Time: 19:47 cp 11/13 19:47 Order name: Cardiac monitoring; Complete Time: 20:18 cp 11/13 19:47 Order name: IV Saline Lock; Complete Time: 20:18 cp 11/13 19:47 Order name: Labs collected and sent; Complete Time: 20:18 cp 11/13 19:47 Order name: O2 Per Protocol; Complete Time: 20:18 cp 11/13 19:47 Order name: O2 Sat Monitoring; Complete Time: 20:18 cp EC/09 19:49 Rate is 78 beats/min. Rhythm is regular. CT interval is normal. QRS interval is normal. cp QT interval is normal. T waves are Inverted in lead aVR. Interpreted by me. Reviewed by me. Administered Medications: 20:00 Drug: Nitroglycerin Sublingual 0.4 mg Sublingual once Route: Sublingual; rg5 21:42 Follow up: Response: No adverse reaction; Pain is decreased rg5 20:01 Drug: Aspirin PO Chewable Tablet 324 mg PO once; 81 mg tablets x 4 Route: PO; rg5 21:42 Follow up: Response: No adverse reaction rg5 20:17 Drug: NS 0.9% IV 1000 ml IV at 1000 ml once; to be given as a bolus over 60 minutes rg5 Route: IV; Rate: 1000 ml; Site: right antecubital; 21:42 Follow up: IV Status: Completed infusion; IV Intake: 1000ml rg5 20:18 Drug: Acetaminophen PO 1000 mg PO once Route: PO; rg5 21:42 Follow up: Response: No adverse reaction; Pain is decreased rg5 22:33 Drug: Ketorolac IVP 15 mg IVP once Route: IVP; Site: right antecubital; jj7 23:31 Follow up: Response: No adverse reaction; Pain is decreased rg5 22:33 Drug: Diazepam IVP 5 mg IVP once Route: IVP; Site: right antecubital; jj7 23:31 Follow up: Response: No adverse reaction rg5 Disposition: 11/14 04:03 Co-signature as Attending Physician, Luís TORRES reviewed the patient's care tt7 provided by the Advanced Practice Provider and agree with the diagnosis and treatment plan. Disposition Summary: 11/14/24 00:24 Discharge Ordered Notes: Location: Home cp Problem: new cp Symptoms: have improved cp Condition: Stable cp Diagnosis - Chest pain, unspecified cp - Dorsalgia, unspecified cp Followup: cp - With: Endy Montenegro MD - When: 2 - 3 days - Reason: chest pain Discharge Instructions: - Discharge Summary Sheet cp - Nonspecific Chest Pain, Adult cp - Aspirin and Your Heart cp - Managing Stress, Adult cp - Managing Anxiety, Adult cp Forms: - Medication Reconciliation Form cp - Antibiotic Education cp - Prescription Opioid Use cp - Patient Portal Instructions cp - Leadership Thank You Letter cp Prescriptions: - Ibuprofen 800 mg Oral Tablet - take 1 tablet ORAL route every 8 hours As needed take with food; 30 tablet; cp Refills: 0, Product Selection Permitted - Cyclobenzaprine 10 mg Oral Tablet - take 1 tablet ORAL route every 8 hours As needed; 30 tablet; Refills: 0, cp Product Selection Permitted Signatures: Dispatcher [employer] [facility] Nas Rincon PA-C PAGuanakito Haley cp, RN RN jj7 Benjie Arriaza RN RN rg5 RACHEL BEGUM RN RN dd2 Luís Winters DO DO tt7 Corrections: (The following items were deleted from the chart) 11/13 19:47 19:47 BASIC METABOLIC PANEL+C.LAB.BRZ ordered. EDMS EDMS 19:47 19:47 CBC+H.LAB.BRZ ordered. EDMS EDMS 19:47 19:47 D-DIMER+COAG.LAB.BRZ ordered. EDMS EDMS 19:47 19:47 HEPATIC FUNCTION+C.LAB.BRZ ordered. EDMS EDMS 19:47 19:47 MAGNESIUM+C.LAB.BRZ ordered. EDMS EDMS 19:47 19:47 PROBNP+C.LAB.BRZ ordered. EDMS EDMS 19:47 19:47 PROTIME (+INR)+COAG.LAB.BRZ ordered. EDMS EDMS 19:47 19:47 Troponin High Sensitivity+C.LAB.BRZ ordered. EDMS EDMS 19:47 19:47 CREATINE PHOSPHOKINASE+C.LAB.BRZ ordered. EDMS EDMS 19:47 19:47 UA Rfx Juan Francisco Cult if indicated+U.LAB.BRZ ordered. EDMS EDMS 19:47 19:47 URINE DRUG SCREEN+UC.LAB.BRZ ordered. EDMS EDMS 21:16 21:16 Chest For PE Angio+CT.RAD.BRZ ordered. EDMS EDMS
--- NOTE | 2024-11-14 00:25 | ER ---
Nurse's Notes [facility] Name: Brennen Dewey Age: 34 yrs Sex: Male : 1990 Arrival Date: 11/13/2024 Time: 19:20 Bed 24 Private MD: Diagnosis: Chest pain, unspecified;Dorsalgia, unspecified Presentation: 11/13 19:28 Chief complaint: Patient states: LT SIDED CHEST PAIN THAT RADIATES TO LT ARM X 30 MINS. dd2 PT REPORTS PAIN TO TOUCH. Coronavirus screen: At this time, the client does not indicate any symptoms associated with coronavirus-19. Ebola Screen: No symptoms or risks identified at this time. Initial Sepsis Screen: Does the patient meet any 2 criteria? No. Patient's initial sepsis screen is negative. Does the patient have a suspected source of infection? No. Patient's initial sepsis screen is negative. Risk Assessment: Do you want to hurt yourself or someone else? Patient reports no desire to harm self or others. Onset of symptoms was November 13, 2024 at 19:00. 19:28 Method Of Arrival: Ambulatory dd2 19:28 Acuity: SELENA 3 dd2 Triage Assessment: 19:31 General: Appears uncomfortable, Behavior is calm, cooperative, appropriate for age. dd2 Pain: Complains of pain in left clavicle and anterior aspect of left upper chest Pain radiates to left arm. Cardiovascular: Reports chest pain, diaphoresis. Historical: - Allergies: 19:31 Albuterol; dd2 19:31 PENICILLINS; dd2 - PMHx: 19:31 Gastroesophageal reflux disease; dd2 - PSHx: 19:31 Cholecystectomy; dd2 - Immunization history:: Adult Immunizations unknown. - Infectious Disease History:: Denies. - Social history:: Smoking status: Patient reports the use of cigarette tobacco products, smokes one-half pack cigarettes per day, Reported history of juuling and/or vaping. Screenin:[address] [facility] ED Fall Risk Assessment (Adult) History of falling in the last 3 months, rg5 including since admission No falls in past 3 months (0 pts) Confusion or Disorientation No (0 pts) Intoxicated or Sedated No (0 pts) Impaired Gait No (0 pts) Mobility Assist Device Used No (0 pt) Altered Elimination No (0 pt) Score/Fall Risk Level 0 - 2 = Low Risk Oriented to surroundings, Maintained a safe environment. Abuse screen: Denies threats or abuse. Nutritional screening: No deficits noted. Tuberculosis screening: No symptoms or risk factors identified. Assessment: 19:49 General: Appears uncomfortable, Behavior is calm, cooperative, appropriate for age. rg5 Pain: Complains of pain in chest Pain radiates to left arm Pain currently is 7 out of 10 on a pain scale. Quality of pain is described as aching, Pain began 1 hour ago. Neuro: Level of Consciousness is awake, alert, obeys commands, Oriented to person, place, time, situation. Cardiovascular: Reports chest pain, Patient's skin is warm and dry. Rhythm is sinus rhythm. Respiratory: Airway is patent Respiratory effort is even, unlabored. GI: Abdomen is flat, non-distended. : No signs and/or symptoms were reported regarding the genitourinary system. EENT: No signs and/or symptoms were reported regarding the EENT system. Derm: Skin is intact, Skin is dry, Skin is normal. Musculoskeletal: Circulation, motion, and sensation intact. Range of motion: intact in all extremities. 20:37 Reassessment: Patient and/or family updated on plan of care and expected duration. Pain rg5 level reassessed. Patient is alert, oriented x 3, equal unlabored respirations, skin warm/dry/pink. Patient states symptoms have improved. 21:35 Reassessment: Patient and/or family updated on plan of care and expected duration. Pain rg5 level reassessed. Patient is alert, oriented x 3, equal unlabored respirations, skin warm/dry/pink. 22:44 Reassessment: Patient and/or family updated on plan of care and expected duration. Pain rg5 level reassessed. Patient is alert, oriented x 3, equal unlabored respirations, skin warm/dry/pink. 23:30 Reassessment: Patient and/or family updated on plan of care and expected duration. Pain rg5 level reassessed. Patient is alert, oriented x 3, equal unlabored respirations, skin warm/dry/pink. Patient states feeling better. Vital Signs: 19:28 BP 133 / 100; Pulse 82; Resp 18; Temp 98.5; Pulse Ox 97% ; Weight 90.72 kg; Pain 9/10; dd2 19:47 BP 133 / 89 LA; Pulse 97; Resp 18; Pulse Ox 100% ; rg5 19:48 BP 139 / 99 RA Supine; Pulse 94; Resp 18; Pulse Ox 97% ; Pain 7/10; rg5 20:18 BP 132 / 85; Pulse 87; Resp 18; Pulse Ox 97% on R/A; Pain 6/10; rg5 21:57 BP 115 / 71; Pulse 80; Resp 18; Pulse Ox 98% ; rg5 22:43 BP 119 / 70; Pulse 87; Resp 18; Pulse Ox 97% ; rg5 23:05 BP 113 / 81; Pulse 87; Resp 18; Pulse Ox 97% on R/A; rg5 11/14 00:31 BP 113 / 62; Pulse 85; Resp 20; Temp 97.9; Pulse Ox 100% ; jj7 11/13 19:28 Pain Scale: Adult dd2 19:48 Pain Scale: Adult rg5 20:18 Pain Scale: Adult rg5 ED Course: 11/13 19:21 Patient arrived in ED. al6 19:23 Nas Rincon PA-C is PHCP. cp 19:23 Luís Winters DO is Attending Physician. cp 19:28 Benjie Arriaza, TOMÁS is Primary Nurse. rg5 19:31 Triage completed. dd2 19:31 Arm band placed on right wrist. dd2 19:49 Patient has correct armband on for positive identification. Bed in low position. Call rg5 light in reach. Side rails up X 1. Client placed on continuous cardiac and pulse oximetry monitoring. NIBP monitoring applied. hall monitor on. Pulse ox on. NIBP on. Door closed. Noise minimized. Warm blanket given. 19:49 No provider procedures requiring assistance completed. Patient maintains SpO2 rg5 saturation greater than 95% on room air. 20:31 XRAY Chest (1 view) In Process Unspecified. EDMS 21:36 CT Chest For PE Angio In Process Unspecified. EDMS 11/14 00:23 Endy Montenegro MD is Referral Physician. cp 00:31 Provided Education on: F/U WITH ENGINE ROOM OPERATOR. jj7 00:31 IV discontinued, intact, bleeding controlled, No redness/swelling at site. Pressure jj7 dressing applied. Administered Medications: 11/13 20:00 Drug: Nitroglycerin Sublingual 0.4 mg Sublingual once Route: Sublingual; rg5 21:42 Follow up: Response: No adverse reaction; Pain is decreased rg5 20:01 Drug: Aspirin PO Chewable Tablet 324 mg PO once; 81 mg tablets x 4 Route: PO; rg5 21:42 Follow up: Response: No adverse reaction rg5 20:17 Drug: NS 0.9% IV 1000 ml IV at 1000 ml once; to be given as a bolus over 60 minutes rg5 Route: IV; Rate: 1000 ml; Site: right antecubital; 21:42 Follow up: IV Status: Completed infusion; IV Intake: 1000ml rg5 20:18 Drug: Acetaminophen PO 1000 mg PO once Route: PO; rg5 21:42 Follow up: Response: No adverse reaction; Pain is decreased rg5 22:33 Drug: Ketorolac IVP 15 mg IVP once Route: IVP; Site: right antecubital; jj7 23:31 Follow up: Response: No adverse reaction; Pain is decreased rg5 22:33 Drug: Diazepam IVP 5 mg IVP once Route: IVP; Site: right antecubital; jj7 23:31 Follow up: Response: No adverse reaction rg5 Medication: 19:49 VIS not applicable for this client. rg5 Intake: 21:42 IV: 1000ml; Total: 1000ml. rg5 Outcome: 11/14 00:24 Discharge ordered by . bright 00:31 Discharged to home ambulatory, with significant other, jj7 00:31 Condition: improved 00:31 Discharge instructions given to patient, Instructed on discharge instructions, follow up and referral plans. medication usage, Demonstrated understanding of instructions, follow-up care, medications, Prescriptions given X 2, 00:33 Patient left the ED. jj7 Signatures: Dispatcher [employer] [facility] Nas Rincon PA-C PA-C cp Johnson, Juwairiyah, RN RN jj7 Benjie Arriaza RN RN rg5 RACHEL BEGUM RN RN dd2 Maame [id number]
[2024-11-14 01:28] VITALS: BP 113/62; TEMP 97.9; O2SAT 100
== END 2024-11-14 00:33 | disposition home or self-care (01) ==
LOC: ER 19:20
DX: R07.9 Chest pain, unspecified (principal); M54.9 Dorsalgia, unspecified
CPT/HCPCS: 36415; 71045; 71275; 80048; 80076; 80307; 81003; 82550; 83735; 83880; 84484; 85025; 85379; 85610; 93005; 96361; 96374; 96375; 99285; J1885; J3360; J7030; Q9967

== ENCOUNTER 2024-11-23 18:42 | Emergency (ER) | payer SELFPAY ==
[2024-11-23] MEDS ORDERED: LIDOCAINE 1% MPF 5 ML VIAL ONE (19:20)
[2024-11-23] MEDS ORDERED: ONDANSETRON 4 MG (ODT) TAB ONE (19:20)
[2024-11-23] MEDS ORDERED: HYDROCODONE/APAP 5/325 MG TAB ONE ×2 (19:21→19:23)
[2024-11-23] MEDS ORDERED: TDAP (DIPHTH,PERTUSS(ACELL),TET VAC) 0.5 ML VIAL IMVAC ONE (19:21)
--- NOTE | 2024-11-23 20:20 | RAD REPORT ---
EXAM: CT brain without contrast HISTORY: TRAUMA COMPARISON: 11/22/2020 TECHNIQUE: Multiple contiguous axial images were obtained and a CT of the brain without contrast. Sag ittal and coronal reformats were performed. FINDINGS: No evidence of hydrocephalus, intracranial hemorrhage, or extra-axial fluid collection. The brain is normal in morphology. The calvarium is intact. The visualized paranasal sinuses and mastoid air cells are essentially clear . IMPRESSION: No evidence of acute intracranial abnormality. EXAM: CT of the cervical spine without contrast HISTORY: TRAUMA COMPARISON: None TECHNIQUE: Multiple contiguous axial images were obtained in a CT of the cervical spine without contr ast. Sagittal and coronal reformats were performed. FINDINGS: The vertebral bodies demonstrate normal height and alignment. No evidence of acute fracture or subluxation.. No degenerative changes are present. No prevertebral soft tissue swelling is seen. The posterior facets are well aligned. Normal alignment of the skull base with the cervical spine is seen. The lung apices are unremarkable. IMPRESSION: No evidence of acute osseous abnormality of the cervical spine.
--- NOTE | 2024-11-23 20:20 | RAD REPORT ---
EXAM: CT CHEST, ABDOMEN AND PELVIS WITHOUT CONTRAST CLINICAL INDICATION: Male, 34 years old. [facility] MAIN chest pain, mid back pain;Trauma Bed Name: 2 TECHNIQUE: CT chest, abdomen and pelvis was performed, without IV contrast, as per department protoco l. Axial, sagittal and coronal reconstructions were obtained. One or more of the following dose reduction techniques were used: Automated exposure control, adjustment of the mA and/or kV according to the patient size, and/or iterative reconstruction. Unless otherwise specified, incidental findings do not require dedicated imaging follow-up. COMPARISON: 11/13/2024 FINDINGS: The lack of intravenous contrast limits the sensitivity of this exam for evaluation of solid visceral organs, vascular structures, and retroperitoneum. Chest: LOWER NECK/CHEST WALL: Visualized thyroid gland and soft tissues are normal. LUNGS AND AIRWAYS: Airways are clear. No evidence of airspace or interstitial process. Stable ovoid l eft lower lobe 9 mm nodule, with tubular extension towards the central region, could relate to adjacent mucous plugging. PLEURA: No pleural effusion. No pneumothorax. Hemidiaphragms are normally positioned. MEDIASTINUM AND LYMPH NODES: Stable partially calcified mildly prominent subcarinal lymph node No oth er mediastinal mass or fluid collection. Normal size mediastinal, hilar, and axillary lymph nodes. THORACIC AORTA: Normal caliber and configuration. PULMONARY ARTERIES: Normal caliber. HEART: Unremarkable. Abdomen/Pelvis LIVER: Normal in size and contour. No focal lesion. GALLBLADDER/BILE DUCTS: Status post cholecystectomy. No biliary ductal dilatation. PANCREAS: No mass, ductal dilation, or leisa-pancreatic fluid. SPLEEN: Normal size. No focal lesion. ADRENALS: Normal; no mass. KIDNEYS AND URETERS: Normal size and contour. No hydronephrosis. GASTROINTESTINAL TRACT: Stomach is non-dilated. Small bowel has normal course and caliber. No colonic wall thickening or pericolonic inflammatory changes. PERITONEUM: No free fluid. LYMPH NODES: No lymphadenopathy. ABDOMINAL AORTA AND OTHER VESSELS: Normal caliber aorta and IVC. URINARY BLADDER: Normal contour. REPRODUCTIVE ORGANS: No pathologic process. MUSCULOSKELETAL: No acute or suspicious osseous abnormality. ADDITIONAL FINDINGS: None IMPRESSION: No acute or traumatic abnormalities in the chest, abdomen, or pelvis.
--- NOTE | 2024-11-23 21:07 | RAD REPORT ---
EXAMINATION: XR Ankle Left 3 View CLINICAL INDICATION: Male, 34 years old. [facility] MAIN PAIN Bed Name: 2 TECHNIQUE: 3 view radiographs of the left ankle were obtained. COMPARISON: No prior exam. FINDINGS: No acute bone or joint abnormality seen. Moderate calcaneal spur. IMPRESSION: No acute osseous abnormalities.
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
[2024-11-24 03:27] VITALS: TEMP 98.2
[2024-11-24 03:32] VITALS: BP 131/87; O2SAT 98
== END 2024-11-23 22:07 | disposition home or self-care (01) ==
LOC: ER 18:42
PROC: 0HQCXZZ Repair Left Upper Arm Skin, External Approach (ICD-10-PCS; principal; 2024-11-23)
DX: S41.112A Laceration without foreign body of left upper arm, initial encounter (principal); V29.498A Other motorcycle driver injured in collision with other motor vehicles in traffic accident, initial encounter
CPT/HCPCS: 12032; 70450; 71250; 72125; 74176; 90715; 96372; 99284; J2003; Q0162